=== PATIENT | male | born 1965 | race Caucasian/White ===

== ENCOUNTER → 2020-11-19 06:41 | Outpatient (CLI) | payer OTHER, SELFPAY ==
[2020-11-19 16:16] LABS: SARS-CoV-2 RNA PCR Negative
== END ==
PROVIDERS: PCP Family Medicine; Visit Provider Family Medicine Adolescent Medicine
DX: R05 Cough (principal); R50.9 Fever, unspecified; M79.10 Myalgia, unspecified site; Z20.822 Contact with and (suspected) exposure to COVID-19
CPT/HCPCS: C9803; U0003; U0005

== ENCOUNTER 2021-10-25 19:11 | Observation (INO) | payer OTHER, SELFPAY ==
[2021-10-25] VITALS (19 sets, daily range): BP systolic 145–183; BP diastolic 75–104; PULSE 66–78; RESP 13–26; TEMP 36.5–36.9; O2SAT 93–98; BMI 29.8
--- NOTE | ~2021-10-25 | CT_ITS ---
EXAMINATION: CT brain wo con INDICATION: Right arm weakness COMPARISON: 03/11/2010 TECHNIQUE: Standard unenhanced head CT. The dose-length product (DLP) was 605.33 mGy-cm. The mA was a djusted according to patient size. Iterative reconstruction technique was employed. FINDINGS: There is no intracranial hemorrhage, acute infarction, or abnormal mass lesion. The ventric les are normal. There is no abnormal mass effect or midline shift. The mcdaniel-white matter differentiat ion is normal. The basal cisterns are patent. The orbits are normal. The paranasal sinuses, mastoids and calvarium are normal. IMPRESSION: 1. No acute intracranial abnormality. As per stroke protocol, I called these results to the Emergency Department, and discussed with Dr. Marito duffy MD at 10/25/2021 19:39 CDT. Reviewed, dictated and finalized at location F. IMPRESSION: 1. No acute intracranial abnormality. As per stroke protocol, I called these results to the Emergency Department, and discussed with Dr. Giorgio MD at 10/25/2021 19:39 CDT.
--- NOTE | ~2021-10-25 | XR_ITS ---
EXAMINATION: XR chest 2V DATE: 10/25/2021 20:22 INDICATION: Right-sided weakness TECHNIQUE: AP and lateral views of the chest are obtained. COMPARISON: 08/26/2015 FINDINGS: The lungs are free of acute opacities. There is no pleural effusion or pneumothorax. The ca rdiomediastinal silhouette is normal. Healed bilateral rib fractures are noted. A healed right eighth rib fracture has the appearance of a lung nodule. IMPRESSION: 1. No acute cardiopulmonary abnormality. Reviewed, dictated and finalized at location F.
--- NOTE | ~2021-10-25 | CT_ITS ---
EXAMINATION: CTA brain carotid DATE: 10/25/2021 20:04 INDICATION: Right-sided weakness TECHNIQUE: Computed tomographic angiography (CTA) of the head was performed without and with 100 mL O mnipaque-350 intravenous contrast. CTA of the neck was performed with intravenous contrast. The dose- length product was 1272.75 mGy-cm. Maximum intensity projection and volume rendered 3D-reconstruction s were created by the technologist on a separate workstation. Automated exposure control and iterativ e reconstruction technique were employed. COMPARISON: None. FINDINGS: HEAD CTA: There is no intracranial hemorrhage, acute infarction, or abnormal mass lesion. The ventric les are normal. There is no abnormal mass effect or midline shift. The mcdaniel-white matter differentiat ion is normal. The basal cisterns are patent. The orbits are normal. The paranasal sinuses, mastoids and calvarium are normal. There is no significant stenosis of the basilar artery or posterior cerebral arteries. There is no si gnificant stenosis of the intracranial internal carotid arteries or the anterior or middle cerebral a rteries. The anterior communicating artery is normal. The posterior communicating arteries are patent . The right posterior to indicating artery is diminutive. There is no aneurysm. NECK CTA: The thyroid gland is unremarkable. The submandibular and parotid glands are symmetric. Ther e is no lymphadenopathy. There are no masses identified. The airway is unremarkable. There are no oss eous abnormalities. The superior mediastinum is unremarkable. There is 65% stenosis of the proximal right internal carotid artery relative to normal distal artery lumen diameter (NASCET criteria). There is 29% stenosis of the proximal left internal carotid artery relative to normal distal artery lumen diameter. IMPRESSION: 1. No acute intracranial abnormality. Normal head CTA. 2. 65% stenosis of the proximal right internal carotid artery relative to normal distal artery lumen diameter (NASCET criteria). 3. 29% stenosis of the proximal left internal carotid artery relative to normal distal artery lumen d iameter. Reviewed, dictated and finalized at location F. IMPRESSION: 1. No acute intracranial abnormality. Normal head CTA. 2. 65% stenosis of the proximal right internal carotid artery relative to dionte l distal artery lumen diameter (NASCET criteria). 3. 29% stenosis of the proximal left internal carotid artery relative to normal distal artery lumen diameter.
--- NOTE | ~2021-10-25 | MR_ITS ---
EXAMINATION: MR brain/brain stem wo/w con DATE: 10/26/2021 09:05 INDICATION: Left hemiparesis. TECHNIQUE: Magnetic resonance imaging (MRI) of the brain and brainstem was performed without and with 18 mL MultiHance intravenous contrast. COMPARISON: Head CT 10/25/2021 FINDINGS: There are scattered areas of nonspecific increased T2-weighted signal intensity in the cere bral white matter, which is within normal limits for the patient's age. There is no intracranial hemo rrhage, acute infarction, or abnormal intracranial mass lesion. The ventricles are normal in size. Th e paranasal sinuses are clear. The mastoid air cells are normal. The orbits are normal. IMPRESSION: 1. Normal aging brain. Reviewed, dictated and finalized at location A. IMPRESSION: 1. Normal aging brain.
--- NOTE | 2021-10-25 19:36 | ECG_ITS ---
Measurements Intervals [place] Rate: 70 P: 27 [place]: 166 QRS: 37 QRSD: 106 T: 20 QT: 409 QTc: 443 Interpretive Statements SINUS RHYTHM NORMAL ECG NO PREVIOUS ECG AVAILABLE FOR COMPARISON Electronically Signed On 10-26-2021 16:14:18 CDT by Juan Manuel Palomo M.D.
[2021-10-25 19:47] LABS: Glucose Point of Care 98 mg/dl (65-105)
--- NOTE | 2021-10-25 19:52 | PC.NURSE ---
Patient in CT at this time.
[2021-10-25 19:53] LABS: Basophils Absolute Auto 0.1 K/mm3 (0.0-0.1); Basophils Percent Auto 1.3 % (0.2-1.2); Eosinophils Absolute Auto 0.1 K/mm3 (0-0.3); Eosinophils Percent Auto 0.8 % (0-4.4); Hematocrit 43.4 % (42.0-52.0); Hemoglobin 14.8 g/dL (14.0-18.0); Immature Granulocyte Absolute 0.07 K/mm3 (0.00-0.031); Immature Granulocyte Percent A 0.8 % (0-0.5); Immature Platelet Fraction Pct 4.4 % (0.9-11.2); Lymphocytes Absolute Auto 2.26 K/mm3 (0.9-3.2); Lymphocytes Percent Auto 24.2 % (18.3-44.2); Mean Corpuscular HGB Conc 34.1 g/dl (32-36); Mean Corpuscular Hemoglobin 35.2 pg (26-34); Mean Corpuscular Volume 103.3 fl (80-100); Mean Platelet Volume 9.8 fl (7.4-10.4); Monocytes Percent Auto 11.1 % (2.6-8.5); Neutrophils Absolute Auto 5.8 K/mm3 (1.3-6.7); Neutrophils Percent Auto 61.8 % (45.5-73.1); Platelet Count Result 145 k/mm3 (150-375); Red Cell Distribution Width 13.1 % (11.5-14.5); White Blood Count 9.3 K/mm3 (4.5-10.0)
[2021-10-25 19:54] LABS: Add Urine Microscopic? NO; Appearance Urine Clear (Clear); Bilirubin Urine Negative (Negative); Blood Urine Negative (Negative); Color Urine Yellow (Yellow); Glucose Urine UA Negative (Negative); Ketones Urine Negative (Negative); Leukocyte Esterase Ur Negative LEU/UL (Negative); Nitrate Urine Negative (Negative); Protein Urine Negative (Negative); Urobilinogen Urine Negative mg/dL (<2.0)
[2021-10-25 19:57] LABS: Specific Grav Ur 1.004 (1.001-1.035)
[2021-10-25 20:01] LABS: Alanine Aminotransferase 39 U/L (4-50); Albumin Level 4.6 g/dL (3.5-5.1); Alkaline Phosphatase 109 U/L (38-126); Anion Gap 8 mmol/L (8-16); Aspartate Amino Transferase 77 U/L (17-59); Bilirubin,Total 1.2 mg/dL (0.2-1.3); Blood Urea Nitrogen 6 mg/dL (9-20); Calcium 8.8 mg/dL (8.4-10.2); Carbon Dioxide 24 mmol/L (22-30); Chloride 101 mmol/L (98-107); Estimated CRCL calculation 150 ml/min; Estimated Glomerular Filt Rate > 60; Glucose 90 mg/dL (65-110); Sodium 133 mmol/L (137-145)
[2021-10-25 20:12] LABS: Troponin I < 0.012 ng/mL (0.000-0.034)
[2021-10-25 20:16] LABS: Amphetamine Screen Urine Negative (Negative); Barbiturate Screen Urine Negative (Negative); Benzodiazepines Screen Urine Negative (Negative); Cannabinoid Screen Urine Positive (Negative); Cocaine Screen Urine Negative (Negative); Methadone Screen Urine Negative (Negative); Opiate Screen Urine Positive (Negative); Phencyclidine Screen Urine Negative (Negative)
--- NOTE | 2021-10-25 20:23 | ED.NEUROSD ---
HPI - Neuro Symptoms/Deficit General Chief Complaint: Neuro Symptoms/Deficit Stated Complaint: left side weaknes, slurred speech since 0145 Time Seen by Provider: 10/25/21 19:27 History of Present Illness HPI Narrative: Patient is a 56-year-old male who presents ER with strokelike symptoms. Patient reports that around 1:30 in the afternoon he started having slurred speech. Within an hour he developed left-sided weakness in the arm and leg. Was having difficulty with walking. He began falling later in the evening due to this weakness and inability to lift his leg. No dizziness or numbness. No difficulty with word finding. No history of CVA. No history of arrhythmia. Related Data Home Medications Medication Instructions Recorded Confirmed escitalopram oxalate 20 mg PO DAILY 10/25/21 10/26/21 Allergies Allergy/AdvReac Type Severity Reaction Status Date / Time No Known Allergies Allergy Mild Verified 10/25/21 19:31 Review of Systems Review of Systems: All systems reviewed & are unremarkable except as noted in HPI and below Constitutional: Constitutional: Denies chills, Denies fever(s) and Denies weakness Eyes: Eyes: Denies change in vision ENT: Denies nasal congestion and Denies sore throat Cardiovascular: Cardiovascular: Denies chest pain and Denies radiating jaw, neck or arm pain Respiratory: Respiratory: Denies cough, Denies dyspnea and Denies wheezing Gastrointestinal: Gastrointestinal: Denies abdominal pain, Denies nausea and Denies vomiting Musculoskeletal: Musculoskeletal: Denies arthralgias and Denies joint swelling Neurologic: Denies headache(s), Reports focal weakness and Denies numbness Comments: Slurred speech, ataxia PMFSH Past Medical History Medical History (Updated 10/26/21 @ 07:20 by Dallas Alvares MD) Hypertension Surgical History Surgical History (Updated 10/25/21 @ 20:25 by Dallas Alvares MD) No pertinent past surgical history Family History Family History (Updated 10/25/21 @ 23:02 by Eric Hyde MD) Father Heart disease Hypertension Father Hypertension Social History Social History (Updated 10/25/21 @ 23:03 by Eric Hyde MD) Smoking status: Never smoker Additional smoking assessment comments: smokes weed Alcohol intake: current Drinks per week: 70 Alcohol use details: 10-12 Beers daily Substance use: current Substance use type: marijuana Spiritual care concerns: No Exam Narrative: GENERAL: Well-appearing, well-nourished, and in no acute distress. HEAD: Normocephalic, atraumatic. EYES: PERRL and EOMI. ENT: Mucous membranes moist. CHEST: Clear to auscultation. No respiratory distress. HEART: Regular rate and rhythm. Normal peripheral pulses. ABDOMEN: Soft, nontender, nondistended. EXTREMITIES: Normal range of motion. No edema. SKIN: Warm, dry, no rash. NEURO: Left upper extremity drift, very mild drift in left lower extremity. Difficulty with finger-nose testing in the left upper and lower extremity that is mild. No facial droop. Cranial nerves intact. No expressive aphasia. Mild dysarthria is more noticeable to patient and examiner. Alert and oriented x3. PSYCH: Normal mood and affect. Course Course Emergency Course: Admit to hospitalist service for CVA. Vital Signs Vital signs: Vital Signs Temperature 98.4 F 10/25/21 19:23 Pulse Rate 69 10/25/21 19:23 Respiratory Rate 19 10/25/21 19:23 Blood Pressure 173/97 H 10/25/21 19:23 Pulse Oximetry 97 10/25/21 19:23 Temperature 98.3 F 10/26/21 04:00 Pulse Rate 70 10/26/21 04:00 Respiratory Rate 18 10/26/21 04:00 Blood Pressure 158/89 H 10/26/21 04:00 Pulse Oximetry 97 10/26/21 04:00 MDM - Neuro Symptoms/Deficit Lab Data Result diagrams: 10/25/21 19:41 10/25/21 19:41 Labs: Lab Results 10/25/21 10/25/21 10/25/21 Range/Units 19:38 19:41 19:41 WBC 9.3 (4.5-10.0) K/mm3 RBC 4.20
[2021-10-25 20:25] LABS: INR 1.2; Prothrombin Time 14.8 Seconds (11.1-14.7)
[2021-10-25 20:26] LABS: Partial Thromboplastin Time 30.3 SECONDS (22.3-36.8)
[2021-10-25] MEDS: ASPIRIN 81 MG CHEWABLE TABLET 324 MG PO (20:41)
--- NOTE | 2021-10-25 21:13 | PM.IMHP ---
H&P: HPI History of Present Illness Date/Time: 10/25/21 21:13 Chief Complaint: Left-sided weakness. Narrative: This is a 56-year-old male with past medical history significant for hypertension, alcohol dependence, major depression, sciatica. Patient presents to the emergency room brought in by brother by private car after patient had an episode of left-sided weakness multiple falls as he was unable to control the left side of his body due to the weakness was dragging his left foot as well, patient had had 4 beers around that time these episode happen around 2:00 a.m. in the afternoon patient had been all morning working in his garden and last night when he went to bed he was his usual had no issues during the week. Patient denied any loss of consciousness, no changes in his vision, no chest pain, no headaches, no shortness of breath, no cough, no fevers, no rigors, no chills, no nausea, no vomiting, no incontinence of sphincters. Patient finally decided to come to the emergency room and conduct his brother who in turn brought him. Preliminary workup showed a systolic blood pressure to be is in the 180s and diastolic in the 90s. A CT angiogram of head and neck did not show any acute clot a but some carotid stenosis, CT of the head did not show acute hemorrhage. At the time of my visit patient has resolution of symptoms. Patient is been admitted for further evaluation management and treatment Review of Systems Review of Systems: Left-sided weakness, falls. Constitutional: Constitutional: Denies chills, Denies daytime sleepiness, Denies excessive sweating, Denies fatigue, Denies fever(s), Denies lethargy, Denies malaise, Denies night sweats, Denies poor appetite and Denies weakness Eyes: Eyes: Denies change in vision ENT: Denies dysphagia, Denies vertigo, Denies dizziness, Denies nasal congestion, Denies nasal discharge, Denies nasal obstruction and Denies odynophagia Cardiovascular: Cardiovascular: Denies chest pain at rest, Denies chest pain with activity, Denies claudication, Denies leg edema, Denies lightheadedness, Denies radiating jaw, neck or arm pain, Denies palpitations, Denies dyspnea on exertion, Denies orthopnea and Denies paroxysmal nocturnal dyspnea Respiratory: Respiratory: Denies chest congestion, Denies cough, Denies excessive phlegm production, Denies dyspnea, Denies dyspnea on exertion and Denies wheezing Gastrointestinal: Gastrointestinal: Denies abdominal pain, Denies dyspepsia, Denies heartburn, Denies diarrhea, Denies nausea and Denies vomiting Genitourinary: Genitourinary: Denies dysuria Musculoskeletal: Musculoskeletal: Denies myalgias, Denies arthralgias and Denies joint swelling Integumentary/Breasts: Skin/Breast: Denies rash Neurologic: Reports as per HPI, Denies Abnormal speech present, Reports abnormal gait, Denies confusion, Denies vertigo, Denies dizziness, Denies syncope, Reports focal weakness, Denies Sensory deficit (Neuro), Denies tingling, Denies tremor(s), Reports disequilibrium and Reports weakness Psychiatric: Psychiatric: Reports no additional psychiatric complaints and Reports as per HPI Endocrine: Endocrine: Denies cold intolerance, Denies heat intolerance, Denies polyphagia, Denies polydipsia and Denies palpitations Hematologic/Lymphatic: Hematologic/Lymphatic: Reports no additional hematologic/lymphatic complaints and Reports as per HPI Allergic/Immunologic: Allergic/Immunologic: Reports no additional allergic/immunologic complaints and Reports as per HPI [facility] Past Medical History Medical History (Updated 10/25/21 @ 23:34 by Eric Hyde MD) Hypertension Surgical History Surgical History (Updated 10/25/21 @ 20:25 by Dallas Alvares MD) No pertinent past surgical history Family History Family History (Updated 10/25/21 @ 23:02 by Eric Hyde MD) Father Heart disease Hypertension Father Hypertension Social History Social History (Updated 10/25/21 @ 23:03 b
--- NOTE | 2021-10-25 23:41 | ADMGEN ---
This patient, Rickey Rizzo, was admitted to 3 [facility] Surg Room 329-01. Patient/family oriented to hospital policies and general routines including ID bracelet, bed and alarms, visiting hours, pain management, procedures, bathroom and other care routines, personal items, smoking policy, room service/diet, and visiting hours. Information on how to activate the Rapid Response Team has been discussed. Patient/Family are encouraged to report perceived risks to care and to ask questions if they do not understand what they are told or what they should do.
[2021-10-26] VITALS (11 sets, daily range): BP systolic 158–169; BP diastolic 76–89; PULSE 56–78; RESP 18–20; TEMP 36.3–36.8; O2SAT 96–98
--- NOTE | 2021-10-26 | ECHO_ITS ---
Patient Info Name: Rickey Rizzo Age: 56 years : 1965 Gender: Male Ht: 68 in Wt: 196 lbs BSA: 2.09 m2 HR: 78 bpm BP: 158 / 89 mmHg Heart Rhythm: Sinus Rhythm Technical Quality: Good Exam Date: 10/26/2021 11:25 AM Exam Location: [facility] Pulmonary Exam Room: [facility] Patient Status: Outpatient Admit Date: 10/25/2021 Staff Ordering Physician: Eric Hyde MD Supervisor [employer]: Jeimy Nunez RDCS Attending Provider: Radha Paris PA-C Referring Physician: Barrett DHILLON; Exam Type: CA echo doppler color flow Study Info Indications - TIA Complete two-dimensional, color flow and Doppler transthoracic echocardiogram is performed. Summary 1. Complete two-dimensional, color flow and Doppler transthoracic echocardiogram is performed. 2. Unremarkable 2D Doppler echocardiogram. Left Ventricle Left ventricular chamber dimension is normal. Left ventricular systolic function is normal, estimated at 65-70%. The left ventricular diastolic function is normal. Right Ventricle Right ventricular chamber dimension is normal. Left Atria Left atrial chamber dimension is normal. Right Atria Right atrial chamber dimension is normal. Aortic Valve The aortic valve is normal. Pulmonic Valve The pulmonic valve is normal. Mitral Valve The mitral valve has normal leaflets. Tricuspid Valve The tricuspid valve leaflets are normal. Pericardium/Pleural The pericardium appears normal. Aorta The aortic root size at the sinus of Valsalva is normal. Left Ventricular Outflow Tract Name Value Normal LVOT 2D LVOT Diameter 2.1 cm LVOT Doppler LVOT Peak Gradient 5 mmHg LVOT Mean Gradient 3 mmHg LVOT VTI 23 cm LVOT VTI/AV VTI Ratio 0.9 LVOT Stroke Volume 79 ml LVOT CO 16.0 l/min LVOT CI 7.6 l/min/m2 Pulmonic Valve Name Value Normal PV Doppler PV Peak Gradient 4 mmHg PV Regurgitation Doppler NC Peak End Diastolic Velocity 71 cm/s Mitral Valve Name Value Normal MV Doppler MV Decel [place] 276 cm/s2 MV PHT 76 ms MV Area (PHT) 2.9 cm2 4.0-5.0 MV Diastolic Function MV E Peak Velocity
[2021-10-26 08:22] LABS: Basophils Absolute Auto 0.1 K/mm3 (0.0-0.1); Basophils Percent Auto 1.4 % (0.2-1.2); Eosinophils Absolute Auto 0.1 K/mm3 (0-0.3); Eosinophils Percent Auto 0.9 % (0-4.4); Hematocrit 43.4 % (42.0-52.0); Hemoglobin 14.7 g/dL (14.0-18.0); Immature Granulocyte Absolute 0.05 K/mm3 (0.00-0.031); Immature Granulocyte Percent A 0.6 % (0-0.5); Lymphocytes Absolute Auto 1.65 K/mm3 (0.9-3.2); Lymphocytes Percent Auto 21.4 % (18.3-44.2); Mean Corpuscular HGB Conc 33.9 g/dl (32-36); Mean Corpuscular Volume 103.3 fl (80-100); Mean Platelet Volume 9.8 fl (7.4-10.4); Monocytes Absolute Auto 0.9 K/mm3 (0.1-0.6); Monocytes Percent Auto 11.3 % (2.6-8.5); Neutrophils Percent Auto 64.4 % (45.5-73.1); Platelet Count Result 109 k/mm3 (150-375); Red Cell Distribution Width 13.2 % (11.5-14.5); White Blood Count 7.7 K/mm3 (4.5-10.0)
[2021-10-26 08:41] LABS: Alanine Aminotransferase 38 U/L (4-50); Albumin Level 4.2 g/dL (3.5-5.1); Alkaline Phosphatase 109 U/L (38-126); Anion Gap 5 mmol/L (8-16); Aspartate Amino Transferase 79 U/L (17-59); Bilirubin,Total 1.8 mg/dL (0.2-1.3); Blood Urea Nitrogen 7 mg/dL (9-20); Calcium 8.5 mg/dL (8.4-10.2); Carbon Dioxide 25 mmol/L (22-30); Chloride 104 mmol/L (98-107); Estimated CRCL calculation 149 ml/min; Estimated Glomerular Filt Rate > 60; Glucose 108 mg/dL (65-110); Potassium 4.1 mmol/L (3.4-5.0); Sodium 134 mmol/L (137-145)
[2021-10-26] MEDS: HYDROcodone/acetaminophen (*CRX) 5-325 MG TABLET 1 TAB PO ×2 (09:22→18:19)
[2021-10-26] MEDS: atenoloL 50 MG TABLET PO (09:22)
[2021-10-26] MEDS: lisinopriL 10 MG TABLET PO (09:23)
[2021-10-26] MEDS: ESCITALOPRAM OXALATE 10 MG TABLET 20 MG BY MOUTH (09:23)
[2021-10-26] MEDS: ATORVASTATIN 40 MG TABLET 80 MG PO (09:23)
[2021-10-26] MEDS: CLOPIDOGREL BISULFATE 75 MG TABLET PO (09:24)
--- NOTE | 2021-10-26 10:15 | WPDNEURCNPN ---
Assessment and Plan Additional Plan TIA involving the right anterior circulation in addition to neuropathy in the lower extremity and documented MCV abnormal raising the possibility of B12 and folate deficiency Consult date: 10/26/21 HPI: Rickey Rizzo is a 56 year old male Admitted to the hospital through the emergency room with the complaints of left-sided weakness along with slurred speech as per the information available around 130 p.m. he started having slurred speech within an hour developed left-sided weakness involving the upper and lower extremity and also had difficulties in walking subsequent started falling he gave no history of nausea vomiting dizziness, has been taking the subtle a prime 20 mg daily and he is not allergic to any medication, he does have ongoing history of being no never smoker but drinking 70 per week at least 10 to 12 beers daily, initial vital signs were stable except blood pressure 173/97 evaluation revealed normal CBC BMP with low sodium of 133 AST 77 and urine positive for opiates CTA of the head and neck negative except 65% stenosis of proximal right internal carotid artery relatively normal distal artery lumen and 29% stenosis of proximal left internal carotid artery MCV 103.3, MRI of the brain normal and negative CT of the head Review of Systems Review of Systems: All systems reviewed & are unremarkable except as noted in HPI and below PMFSH Past Medical History Medical History Hypertension Surgical History Surgical History No pertinent past surgical history Family History Family History Father Heart disease Hypertension Father Hypertension Social History Social History Smoking status: Never smoker Additional smoking assessment comments: smokes weed Alcohol intake: current Drinks per week: 70 Alcohol use details: 10-12 Beers daily Substance use: current Substance use type: marijuana Spiritual care concerns: No Meds Home Medications and Allergies Home Medications Medication Instructions Recorded Confirmed Type atenolol 50 mg tablet 50 mg PO DAILY #30 tablet 08/25/21 10/26/21 Rx lisinopril 10 mg tablet 10 mg PO DAILY #30 tablet 08/26/21 10/26/21 Rx hydrocodone 5 mg-acetaminophen 325 1 tablet PO QID PRN #30 tablet 10/13/21 10/26/21 Rx mg tablet escitalopram oxalate 20 mg PO DAILY 10/25/21 10/26/21 History Allergies Allergy/AdvReac Type Severity Reaction Status Date / Time No Known Allergies Allergy Mild Verified 10/25/21 19:31 Vital Signs Vital Signs - 24 hr 10/25/21 19:23 10/25/21 19:45 10/25/21 19:46 Temperature 36.9 C Pulse Rate 69 69 75 Respiratory Rate 19 26 H 20 Blood Pressure 173/97 H 168/86 H Pulse Oximetry 97 95 95 10/25/21 20:03 10/25/21 20:05 10/25/21 20:22 Temperature Pulse Rate 68 69 72 Respiratory Rate 16 22 H 13 Blood Pressure 163/86 H Pulse Oximetry 97 95 96 10/25/21 20:41 10/25/21 21:06 10/25/21 21:15 Temperature Pulse Rate 78 73 71 Respiratory Rate 17 15 20 Blood Pressure Pulse Oximetry 94 95 94 10/25/21 21:16 10/25/21 21:33 10/25/21 21:55 Temperature Pulse Rate 75 71 66 Respiratory Rate 13 14 15 Blood Pressure 163/104 H Pulse Oximetry 95 96 97 10/25/21 22:06 10/25/21 22:14 10/25/21 22:15 Temperature Pulse Rate 72 67 68 Respiratory Rate 21 H 18 22 H Blood Pressure 183/83 H Pulse Oximetry 93 95 95 10/25/21 22:30 10/25/21 22:33 10/25/21 22:46 Temperature Pulse Rate 74 77 Respiratory Rate 17 22 H Blood Pressure 167/102 H 145/93 H Pulse Oximetry 96 95 10/25/21 23:05 10/26/21 00:00 10/26/21 04:00 Temperature 36.5 C 36.8 C Pulse Rate 70 78 70 Respiratory Rate 18 18 Blood Pressure 174/75 H 158/89 H Pulse Oximetry 98 97 10/26/21 07:54 10/26/21 08
--- NOTE | 2021-10-26 13:49 | PM.IMPN ---
Progress Note: A&P Assessment and Plan (1) Transient ischemic attack: Code(s): G45.9 - Transient cerebral ischemic attack, unspecified Status: Acute Assessment and Plan: -Patient presented 6 hours after episode -Symptoms had resolved at the time of presenting to emergency room -CT did not show any acute thrombosis -MRI negative -Echocardiogram pending -Will start Lipitor and Plavix -neuro consult (2) Fall: Code(s): W19.XXXA - Unspecified fall, initial encounter Status: Acute Assessment and Plan: -No acute fractures -Likely secondary to brief episode of weakness and gait disturbance (3) Hypertension: Code(s): I10 - Essential (primary) hypertension Status: Acute Assessment and Plan: -Restart home meds -trending slightly elevated, contine monitoring, consider adjusting medications (4) Alcohol dependence: Code(s): F10.20 - Alcohol dependence, uncomplicated Status: Acute Assessment and Plan: -CIWA protocol as needed -No signs of withdrawal Subjective Date/time seen: 10/26/21 13:49 Interval history: 56 yo male w/ hx of hypertension, alcohol dependence, major depression, sciatica, admitted for TIA. Pt had L sided weakness yesterday causing him to have multiple falls. Today he tells me that all symptoms have resolved and he was able to walk to the bathroom. No weakness, dizziness, vision changes, paraesthesias. No cp/sob. Review of Systems Review of Systems: All systems reviewed & are unremarkable except as noted in HPI and below Exam Narrative: General: No acute distress, non toxic appearing Eyes: PERRL, no scleral icterus HEENT: NCAT, external ears normal, MMM Respiratory: No respiratory distress, Lungs CTA bilaterally, no wheezing Cardiovascular: RRR, no murmur Abdominal: Soft, nontender, non distended, no rebound or guarding Musculoskeletal: Moves all 4 extremities, no edema Neurological: A/Ox3, speech clear, no facial asymmetry, cranial nerves II-XII grossly intact. 5/5 strength BUE and BLE. 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 Skin: Warm, dry, no rashes Psychiatric: Normal affect, normal mood Objective Data Vital Signs Vital Signs: Vital Signs - 24 hr 10/25/21 19:23 10/25/21 19:45 10/25/21 19:46 Temperature 98.4 F Pulse Rate 69 69 75 Respiratory Rate 19 26 H 20 Blood Pressure 173/97 H 168/86 H Pulse Oximetry 97 95 95 10/25/21 20:03 10/25/21 20:05 10/25/21 20:22 Temperature Pulse Rate 68 69 72 Respiratory Rate 16 22 H 13 Blood Pressure 163/86 H Pulse Oximetry 97 95 96 10/25/21 20:41 10/25/21 21:06 10/25/21 21:15 Temperature Pulse Rate 78 73 71 Respiratory Rate 17 15 20 Blood Pressure Pulse Oximetry 94 95 94 10/25/21 21:16 10/25/21 21:33 10/25/21 21:55 Temperature Pulse Rate 75 71 66 Respiratory Rate 13 14 15 Blood Pressure 163/104 H Pulse Oximetry 95 96 97 10/25/21 22:06 10/25/21 22:14 10/25/21 22:15 Temperature Pulse Rate 72 67 68 Respiratory Rate 21 H 18 22 H Blood Pressure 183/83 H Pulse Oximetry 93 95 95 10/25/21 22:30 10/25/21 22:33 10/25/21 22:46 Temperature Pulse Rate 74 77 Respiratory Rate 17 22 H Blood Pressure 167/102 H 145/93 H Pulse Oximetry 96 95 10/25/21 23:05 10/26/21 00:00 10/26/21 04:00 Temperature 97.7 F 98.3 F Pulse Rate 70 78 70 Respiratory Rate 18 18 Blood Pressure 174/75 H 158/89 H Pulse Oximetry 98 97 10/26/21 07:54 10/26/21 08:00 10/26/21 08:46 Temperature 97.4 F L Pulse Rate 74 68 Respiratory Rate 19 19 Blood Pressure 166/76 H Pulse Oximetry 97 97 97 10/26/21 09:22 10/26/21 11:57 Temperature 97.8 F Pulse Rate 68 56 L Respiratory Rate 20 Blood Pressure 169/79 H Pulse Oximetry 97 Intake/Output Intake/Output: Intake & Output 10/23/21 10/24/21 10/25/21 10/26/21 23:59 23:59 23:59 23:59 Intake Total 240 Output Total 350 Balance -110 Meds/Results M
[2021-10-27] VITALS (8 sets, daily range): BP systolic 137–179; BP diastolic 85–92; PULSE 59–68; RESP 18–20; TEMP 36.6–36.8; O2SAT 96–99
[2021-10-27 06:00] LABS: Basophils Absolute Auto 0.1 K/mm3 (0.0-0.1); Basophils Percent Auto 1.4 % (0.2-1.2); Eosinophils Absolute Auto 0.1 K/mm3 (0-0.3); Eosinophils Percent Auto 1.2 % (0-4.4); Hematocrit 42.8 % (42.0-52.0); Hemoglobin 14.8 g/dL (14.0-18.0); Immature Granulocyte Absolute 0.03 K/mm3 (0.00-0.031); Immature Granulocyte Percent A 0.4 % (0-0.5); Immature Platelet Fraction Pct 5.3 % (0.9-11.2); Lymphocytes Absolute Auto 1.74 K/mm3 (0.9-3.2); Lymphocytes Percent Auto 21.5 % (18.3-44.2); Mean Corpuscular HGB Conc 34.6 g/dl (32-36); Mean Corpuscular Hemoglobin 35.2 pg (26-34); Mean Corpuscular Volume 101.9 fl (80-100); Mean Platelet Volume 10.7 fl (7.4-10.4); Monocytes Percent Auto 12.3 % (2.6-8.5); Neutrophils Absolute Auto 5.1 K/mm3 (1.3-6.7); Neutrophils Percent Auto 63.2 % (45.5-73.1); Platelet Count Result 104 k/mm3 (150-375); White Blood Count 8.1 K/mm3 (4.5-10.0)
[2021-10-27 06:12] LABS: Alanine Aminotransferase 36 U/L (4-50); Albumin Level 3.9 g/dL (3.5-5.1); Alkaline Phosphatase 95 U/L (38-126); Anion Gap 6 mmol/L (8-16); Aspartate Amino Transferase 73 U/L (17-59); Bilirubin,Total 1.8 mg/dL (0.2-1.3); Blood Urea Nitrogen 13 mg/dL (9-20); Calcium 8.6 mg/dL (8.4-10.2); Carbon Dioxide 27 mmol/L (22-30); Chloride 102 mmol/L (98-107); Estimated CRCL calculation 149 ml/min; Estimated Glomerular Filt Rate > 60; Glucose 106 mg/dL (65-110); Sodium 135 mmol/L (137-145)
[2021-10-27] MEDS: CLOPIDOGREL BISULFATE 75 MG TABLET PO (08:09)
[2021-10-27] MEDS: ESCITALOPRAM OXALATE 10 MG TABLET 20 MG BY MOUTH (08:09)
[2021-10-27] MEDS: atenoloL 50 MG TABLET PO (08:09)
[2021-10-27] MEDS: lisinopriL 10 MG TABLET PO (08:09)
[2021-10-27] MEDS: ATORVASTATIN 40 MG TABLET 80 MG PO (08:09)
[2021-10-27 08:25] LABS: Folic Acid 16.8 ng/mL (2.76->20)
--- NOTE | 2021-10-27 11:41 | PM.DS ---
DS: Admitting Diagnosis Discharge Date 10/27/21 Admitting Diagnosis TIA DS: Discharge Diagnosis Discharge Diagnosis (1) Transient ischemic attack: Code(s): G45.9 - Transient cerebral ischemic attack, unspecified Status: Acute Assessment and Plan: -Patient presented 6 hours after episode -Symptoms had resolved at the time of presenting to emergency room -CT did not show any acute thrombosis -MRI negative -Head/neck CTA shows 65% stenosis of the proximal right internal carotid artery relative to normal distal artery lumen diameter (NASCET criteria). There is 29% stenosis of the proximal left internal carotid artery relative to normal distal artery lumen diameter. -Echocardiogram normal -Started Lipitor and Plavix -neurology consulted. He recommends discharging home on 81 mg ASA, 75 mg plavix, and 80 mg lipitor. He also recommends patient follow up in the next 1-[address] Bryant to arrange outpatient vascular surgery consult. -pt is asymptomatic at this time. All questions and concerns were addressed to patient's satisfaction. Return precautions provided. (2) Carotid stenosis: Code(s): I65.29 - Occlusion and stenosis of unspecified carotid artery Status: Acute Assessment and Plan: -as above (3) Fall: Code(s): W19.XXXA - Unspecified fall, initial encounter Status: Acute Assessment and Plan: -No acute fractures -Likely secondary to brief episode of weakness and gait disturbance (4) Hypertension: Code(s): I10 - Essential (primary) hypertension Status: Acute Assessment and Plan: -Restarted home meds -trending slightly elevated, recommend follow up in 1 week with pcp to discuss medication management and possibly increasing the dose of his anti hypertensives (5) Alcohol dependence: Code(s): F10.20 - Alcohol dependence, uncomplicated Status: Acute Assessment and Plan: -CIWA protocol as needed -No signs of withdrawal DS: Summary Hospital Course Reason for hospitalization: 56 yo male w/ hx of hypertension, alcohol dependence, major depression, sciatica, admitted for TIA. Please see HPI for further details. Hospital Course: Please see above for details of hospital course. Status at Discharge Cognitive/behavioral status at discharge: stable Functional status at discharge: independent ambulation Overall status at discharge: patient is progressing back to baseline Time Spent with Patient Time attestation: Total time spent providing and/or coordinating discharge services: 35 Time spent: Greater than 30 minutes Exam Narrative: General: No acute distress, non toxic appearing Eyes: PERRL, no scleral icterus HEENT: NCAT, external ears normal, MMM Respiratory: No respiratory distress, Lungs CTA bilaterally, no wheezing Cardiovascular: RRR, no murmur Abdominal: Soft, nontender, non distended, no rebound or guarding Musculoskeletal: Moves all 4 extremities, no edema Neurological: A/Ox3, speech clear, no facial asymmetry, cranial nerves II-XII grossly intact. 5/5 strength BUE and BLE. Normal equal cork insulation setter strength. Skin: Warm, dry, no rashes Psychiatric: Normal affect, normal mood DS: Data Data Completed and Pending Labs on day of discharge: Labs from last 24 hours 10/27/21 10/27/21 10/27/21 05:26 05:26 05:24 WBC 8.1 RBC 4.20 L Hgb 14.8 Hct 42.8 MCV 101.9 H MCH 35.2 H MCHC 34.6 RDW 13.0 Plt Count 104 L MPV 10.7 H Immature Gran % (Auto) 0.4 Neut % (Auto) 63.2 Lymph % (Auto) 21.5 [place] % (Auto) 12.3 H Eos % (Auto) 1.2 Baso % (Auto) 1.4 H Lymph # (Auto) 1.74 [place] # (Auto) 1.0 H Eos # (Auto) 0.1 Baso # (Auto) 0.1 Abs Immat Gran (auto) 0.03 Absolute Neuts (auto) 5.1 Absolute Nucleated RBC 0.0 Nucleated RBC % 0.0 % Immature Plt Fraction 5.3 Sodium 135 L Potassium 4.0 Chloride 102
--- NOTE | 2021-10-27 12:31 | WPDNEUROPN ---
Progress Note: A&P Additional Plan discussed thoroughly will need to continue aspirin and Plavix for the diagnosis of TIA, will need a follow-up with a family physician to be referred to vascular surgeon, Subjective Date/time seen: 10/27/21 12:31 1 TIA involving the right anterior circulation 2 neuropathy 3 65% stenosis of the proximal right internal carotid artery relative to normal distal artery lumen diameter 4 negative MRI of the brain Objective Data Vital Signs Vital Signs: Vital Signs - 24 hr 10/26/21 16:00 10/26/21 19:57 10/26/21 20:00 Temperature 36.4 C 36.8 C Pulse Rate 58 L 63 59 L Respiratory Rate 20 18 Blood Pressure 164/83 H 160/82 H Pulse Oximetry 98 96 10/26/21 23:45 10/27/21 00:00 10/27/21 03:48 Temperature 36.7 C 36.6 C Pulse Rate 56 L 63 59 L Respiratory Rate 18 18 Blood Pressure 166/79 H 167/92 H Pulse Oximetry 98 96 10/27/21 04:00 10/27/21 07:49 10/27/21 08:00 Temperature 36.6 C Pulse Rate 65 59 L 65 Respiratory Rate 20 Blood Pressure 179/85 H Pulse Oximetry 99 10/27/21 08:09 10/27/21 11:51 10/27/21 12:00 Temperature 36.8 C Pulse Rate 68 63 63 Respiratory Rate 19 Blood Pressure 137/85 Pulse Oximetry 98 Intake/Output Intake/Output: Intake & Output 10/24/21 10/25/21 10/26/21 10/27/21 23:59 23:59 23:59 23:59 Intake Total 1045 370 Output Total 350 Balance 695 370 Meds/Results Medications: Active Medications Generic Name Dose Route Start Last Admin Trade Name Freq PRN Reason Stop Dose Admin Acetaminophen 650 mg 10/25/21 21:25 Acetaminophen 325 Mg Tablet PO Q4H PRN Mild Pain (1-3) or Fever Hydrocodone Bitart/Acetaminophen 1 tab 10/25/21 21:25 10/26/21 18:19 Hydrocodone/Acetaminophen (*Crx) 5-325 Mg Tablet PO 1 tab Q4H PRN Administration Pain Rated 4-6 Atenolol 50 mg 10/26/21 09:00 10/27/21 08:09 Atenolol 50 Mg Tablet PO 50 mg DAILY NAVYA Administration Atorvastatin Calcium 80 mg 10/26/21 09:00 10/27/21 08:09 Atorvastatin 40 Mg Tablet PO 80 mg DAILY NAVYA Administration Clopidogrel Bisulfate 75 mg 10/26/21 09:00 10/27/21 08:09 Clopidogrel Bisulfate 75 Mg Tablet PO 75 mg QAM NAVYA Administration Escitalopram Oxalate 20 mg 10/26/21 09:00 10/27/21 08:09 Escitalopram Oxalate 10 Mg Tablet BY MOUTH 20 mg DAILY NAVYA Administration Lisinopril 10 mg 10/26/21 09:00 10/27/21 08:09 Lisinopril 10 Mg Tablet PO 10 mg DAILY NAVYA Administration Morphine Sulfate 4 mg 10/25/21 21:25 Morphine Sulfate (*Crx) 4 Mg/Ml Inj IV PUSH Q2H PRN Pain Rated 7-10 Ondansetron HCl 4 mg 10/25/21 21:25 Ondansetron Inj 4 Mg/2 Ml Vial IV PUSH Q4H PRN Nausea Perflutren Lipid Microsphere 0 ml 10/26/21 00:57 Perflutren Lipid Microspheres 1.5 Ml Vial Diluted To 10 Ml Total Volume IV PUSH ONCE PRN adequate visualization Protocol Radiology Results: ITS Impressions Head CT 10/25/21 19:36 IMPRESSION: 1. No acute intracranial abnormality. As per stroke protocol, I called these results to the Emergency Department, and discussed with Dr. Giorgio MD at 10/25/2021 19:39 CDT. Head/Neck CTA 10/25/21 20:10 IMPRESSION: 1. No acute intracranial abnormality. Normal head CTA. 2. 65% stenosis of the proximal right internal carotid artery relative to normal distal artery lumen diameter (NASCET criteria). 3. 29% stenosis of the proximal left internal carotid artery relative to normal distal artery lumen diameter. Chest X-Ray 10/25/21 20:41 IMPRESSION: 1. No acute cardiopulmonary abnormality. Brain MRI 10/26/21 09:08 IMPRESSION: 1. Normal aging brain. Labs Labs: Laboratory Results - last 24 hr 10/27/21 10/27/21 10/27/21 05:24 05:26 05:26 WBC 8.1 RBC 4.20 L Hgb 14.8 Hct 42.8 MCV 101.9 H MCH 35.2 H MCHC 34.6 RDW 13.0 Plt Count 104 L MPV 10.7 H Immature Gran % (Auto)
== END 2021-10-27 12:30 | disposition home or self-care (01) ==
LOC: ANHED 19:41 → ANH3MEDSUR 22:10
PROVIDERS: Physician Assistant; Admitting Provider Internal Medicine; Emergency Provider Emergency Medicine; PCP Family Medicine Adolescent Medicine; Visit Provider Family Medicine
DX: G45.9 Transient cerebral ischemic attack, unspecified (principal); I10 Essential (primary) hypertension; F10.20 Alcohol dependence, uncomplicated; F12.90 Cannabis use, unspecified, uncomplicated; W19.XXXA Unspecified fall, initial encounter; F32.9 Major depressive disorder, single episode, unspecified; M54.30 Sciatica, unspecified side
CPT/HCPCS: 36415; 70450; 70496; 70498; 70553; 71046; 80053; 80307; 81003; 82607; 82746; 82948; 84484; 85025; 85055; 85610; 85730; 93005; 93306; 99285; A9270; A9577; G0378; Q9967

== ENCOUNTER 2024-09-24 13:05 | Outpatient (CLI) | payer OTHER, SELFPAY ==
--- NOTE | ~2024-09-24 | US_ITS ---
EXAMINATION: US carotid duplex BI DATE: 09/24/2024 13:52 INDICATION: Transient ischemic attack. Bilateral carotid stenosis. TECHNIQUE: Grayscale, color Doppler, and pulsed Doppler images of the cervical carotid arteries were obtained. The degree of vessel stenosis is placed in one of the following categories: normal, <50%, 5 0-69%, >=70% but less than near-occlusion, near-occlusion, or total occlusion. Note that percent sten osis relative to normal distal artery lumen diameter is indirectly measured from velocity measurement s as described by Olegario, et al. Radiology 2003; 229:340-346. COMPARISON: CTA 10/25/21 FINDINGS: RIGHT: The right common carotid artery (CCA) peak systolic velocity (PSV) is 68 cm/s. The right internal car otid artery (ICA) PSV is 86 cm/s. The right ICA end-diastolic velocity (EDV) is 18 cm/s. The right IC A/CCA PSV ratio is 1.3. Grayscale and color Doppler images yield an estimate of <50% diameter reducti on from plaque in the ICA. There is antegrade flow in the right vertebral artery. LEFT: The left CCA PSV is 108 cm/s. The left ICA PSV is 102 cm/s. The left ICA EDV is 34 cm/s. The left ICA /CCA PSV ratio is 0.9. Grayscale and color Doppler images yield an estimate of <50% diameter reductio n from plaque in the ICA. There is antegrade flow in the left vertebral artery. IMPRESSION: 1. <50% stenosis in the right internal carotid artery. 2. <50% stenosis in the left internal carotid artery. Reviewed, dictated and finalized at location A.
--- OUTSIDE RECORDS SUMMARY | 2024-09-24 14:55 | XMS_ITS | Clinical Summary ---
Author Organization [facility] [address] [address] Address [address] [place] [address] Care Team Providers Care Laboratory Equipment Cleaner Name Role Phone Lawrence Blue MD Primary Care Prov ider Dasha Khalil NP Unavailable [phone] Allergies No known active allergies Medications rosuvastatin (CRESTOR) 40 mg tablet Take 1 tablet (40 mg total) by mouth daily 01/11/2022 Active clopidogreL (PLAVIX) 75 mg tablet Take 1 tablet (75 mg total) by mouth every morning 12/03/2021 Active lisinopriL (PRINIVIL,ZESTR [place]) 10 mg tablet Take 1 tablet (10 mg total) by mouth daily 12/03/2021 Active escitalopram (LEXAPRO) 20 mg tablet Take 1 tablet (20 mg total) by mouth daily 01/11/2022 Active HYDROcodone-evon taminophen (NORCO) 5-325 mg per tablet Take 1 tablet by mouth every 4 (four) hours as needed Usually in the evening 01/12/2022 Active atenoloL (TENORMIN) 50 mg tablet Take 1 tablet (50 mg total) by mouth daily 01/01/2022 Active cholecalciferol (VITAMIN D-3) 5,000 unit capsule Take 1 capsule (5,000 Units total) by mouth daily Active Active Problems Problem Noted Date Diagnosed Date Claudication 10/11/2022 Overview (10/11/2022): Added automatically from request for surgery [id number] Assessment & Plan (10/12/2022 7:10 AM CDT): Bilateral lower extremity life-limiting claudication left greater than right. Risks benefits alternatives to left lower extremity angiography with possible intervention discussed, risks including bleeding, infection, perforation, contrast induced nephropathy, dissection, thrombosis, distal embolization, and need for further surgery. He wished to proceed. We will get a CTA prior to his angiogram to evaluate for inflow disease due to monophasic waveforms. Primary hypertension 01/13/2022 Assessment & Plan (10/12/2022 7:10 AM CDT): Stable continue atenolol 50 mg. Assessment & Plan (02/04/2022 7:33 AM CDT): Lisinopril Assessment & Plan (01/13/2022 3:10 PM CDT): Atenolol Stenosis of right carotid artery 01/13/2022 Assessment & Plan (02/04/2022 7:33 AM CDT): After review of his CTA from [facility] as well as the duplex here today he has less than 50% stenosis of the right internal carotid artery. I have recommended continue medical management with risk factor modification with ASA, Plavix, statin and good blood pressure control. He will follow-up in 6 months with repeat duplex. Assessment & Plan (01/13/2022 3:10 PM CDT): Symptomatic right ICA stenosis, continue risk factor modification with ASA, Plavix and statin therapy as well as good blood pressure control. I discussed management options for carotid artery stenosis including surgical management or stenting with symptomatic disease greater than 50% or asymptomatic disease greater than 80%. I will obtain his CT a head and neck from [facility] and evaluate this myself, I have also ordered a carotid duplex for further evaluation. Follow-up in 1-2 weeks. Mixed hyperlipidemia 01/13/2022 Assessment & Plan (10/12/2022 7:10 AM CDT): Stable continue Crestor 40 mg. Assessment & Plan (02/04/2022 7:33 AM CDT): Crestor Assessment & Plan (01/13/2022 3:10 PM CDT): Lipitor Surgical History Surgery Date Site/Laterality Comments HERNIA REPAIR as a baby Medical History Medical History Date Comments HTN (hypertension) TIA (transient ischemic attack) Leg pain can't walk a blo ck without pain Depression SOB (shortness of breath) due to pain in legs Chronic pain disorder legs Hyperlipidemia Family History Medical History Relation Name Comments Heart disease Father Hypertension Father Relation Name Status Comments Father Social History Tobacco Use Types Packs/Day Years Used Date Smoking Tobacco: Never Smokeless Tobacco: Never AUDIT-C Answer Date Recorded Q1: How often do you have a drink containing alcohol? 4 or more times a week 10/19/2022 Q2: How many drinks containi ng alcohol do you have on a typical day when you are drinking? 7 to 9 Q3: How often do you have si x or more drinks on one occasion? Daily or almost daily 10/19/2022 Personal Safety Answer Date Recorded Getting School Help Needed Not on file 10/20 Sex and Gender Information Value Date Recorded Sex Assigned at Not on file Legal Sex Male 9:38 AM CDT Gender Identity Not on file Sexual Orientation Not on file Obstetrics History Last Filed Vital Signs Vital Sign Reading Time Taken Comments Blood Pressure 124/84 10/19/2022 4:00 PM CDT Pulse 63 10/19/2022 4:00 PM CDT Temperature 36.8 C (98.3 F) 10/19/2022 1:30 PM CDT Respiratory Rate 18 10/19/2022 4:00 PM CDT Oxygen Saturation 99% 10/19/2022 4:00 PM CDT Inhaled Oxygen Concentration - - Weight 88.5 kg (195 lb) 10/11/2022 2:38 PM CDT Height 172.7 cm (5' 8 ) 10/11/2022 2:38 PM CDT Body Mass Index 29.65 10/11/2022 2:38 PM CDT Plan of Treatment Health Maintenance Due Date Last Done Comments Colon Cancer Screening-Colonoscopy 1965 Depression Screening 1965 Hepatitis C Screening 1965 Prostate Cancer Screening-PSA 1965 DTaP/Tdap/Td Vaccine (1 - Tdap) 1976 Hepatitis B Screening 09/06/1983 Regular Well Visit/Exam 18-64 09/06/1983 Zoster Vaccine (1 of 2) 09/06/2015 Covid-19 Vaccine (2023-2 5 season) 2024 02/12/2021, 01/22/2021 Influenza Vaccine (#1) 2024 Pneumococcal vaccine <65 Aged Out No longer eligible based on patient's age to complete this topic Insurance Advance Directives For more information, please contact: [phone] * Full Code (Latest Code Status on File) Date Activated Date Inactivated Comments 10/19/2022 1:30 PM 10/19/2022 9:12 PM Care Teams Laboratory Equipment Cleaner Relationship Specialty Start Date End Date Lawrence Blue MD [address] [place] [address] PCP - General Family Medicine 10/25/21 Dasha Khalil NP [address] [facility] [place] [address] Nurse Practitioner Family Practice 11/12/22
--- OUTSIDE RECORDS SUMMARY | 2024-09-24 14:55 | XMS_ITS | Clinical Summary ---
Author Organization [facility] Address [address] [place] [address] Care Team Providers Care Museum Director Name Role Phone Unavailable Primary Care Provider Unavailabl e Immunizations Immunization Administration Dates Next Due Covid-19, Mrna, Lnp-s, Pf, 30 Mcg/0.3 Ml Dose (P fizer) 02/12/2021,01/22/2021 Social History Tobacco Use Types Packs/Day Years Used Date Smoking Tobacco: Never Assessed Sex and Gender Information Value Date Recorded Sex Assigned at Not on file Legal Sex Male 12:02 PM CDT Gender Identity Not on file Sexual Orientation Not on file Plan of Treatment Health Maintenance Due Date Last Done Comments Hepatitis C Virus (HCV) Screening 1965 TdaP Immunization 1965 Hepatitis B Immunization (1 of 3 - 19+ 3-dose series) 1984 Colonoscopy 2010 Colorectal Cancer Screening 2010 Cologuard 09/06/2015 Immunochemical Fecal Occult Blood 09/06/2015 Pneumococcal Immunization (5 0+ years) (1 of 1 - PCV) 09/06/2015 Zoster Immunization (1 of 2) 09/06/2015 PSA Discussion 2020 Influenza Immunization (#1) 2024 SARS-COV-2 Immunization (2023- season) 2024 02/12/2021, 01/22/2021 Respiratory Syncytial Virus (RSV) Immunization (Adult) (1 - 1-dose 75+ series) 2040 Meningococcal Immunization (ACWY) Aged Out No longer eligible b ased on patient's age to complete this topic Pneumococcal Immunization Combined Aged Out No longer eligible b ased on patient's age to complete this topic Rotavirus Immunization Aged Out No lo nger eligible based on patient's age to complete this topic
--- OUTSIDE RECORDS SUMMARY | 2024-09-24 14:55 | XMS_ITS | Referral Summary ---
Author Organization [facility] [address] [address] [address] [place] [address] Care Team Providers Care Cleaner Greaser Name Role Phone Lawrence Blue MD Primary Care Prov ider Dasha Khalil NP Unavailable [phone] Allergies No known active allergies Medications [...] (10/11/2022): Added automatically from request for surgery [id number] Assessment & Plan (10/12/2022 7:10 AM CDT): [...] CDT): After review of his CTA from [facility] as well as the duplex here today [...] his CT a head and neck from [place] and evaluate this myself, I have also ordered a carotid duplex for further evaluation. Follow-up in 1-2 weeks. Mixed hyperlipidemia 01/13/2022 Assessment & Plan (10/12/2022 7:10 AM CDT): Stable continue Crestor 40 mg. Assessment & Plan (02/04/2022 7:33 AM CDT): Crestor Assessment & Plan (01/13/2022 3:10 PM CDT): Lipitor Social History Tobacco Use Types Packs/Day Years [...] on file Sexual Orientation Not on file Last Filed Vital Signs Vital Sign Reading [...] 10/11/2022 2:38 PM CDT Plan of Treatment Not on file Insurance [facility] CHO[facility] PLUS [facility] PLUS Advance Directives For more information, please contact: [phone] * Full Code (Latest Code Status on File) Date Activated Date Inactivated Comments 10/19/2022 1:30 PM 10/19/2022 9:12 PM Care Teams Cleaner Greaser Relationship Specialty Start Date End Date Lawrence Blue MD [address] [place] [address] PCP - General Family Medicine 10/25/21 Dasha Khalil NP [address] [place], [place] [address] [address] Nurse Practitioner Family Practice 11/12/22
--- OUTSIDE RECORDS SUMMARY | 2024-09-24 14:55 | XMS_ITS | Clinical Summary ---
Author Organization [facility] Address [address] [place] [address] Care Team Providers Care Milker Machine Name Role Phone Dasha Khalil Primary Care Provider [phone] Source Comments [facility],non-owned Affiliates and Associated Physician Practices is amultiple site organization consisting of ambulatory clinics and hospital sitesin [place], [place], [place] and [place]. This disclosure is being madepursuant to the Care Everywhere program and may not contain all information available regarding this patient. Last updated 18.[facility] Allergies No known active allergies Medications * Be aware that medications may not be up to date on this document. Alwaysverify current medications with the patient. Medication Sig Dispensed Refills Start Date End Date Status atenolol (Tenormin) 50 MG tablet Take 1 (one) tablet by mouth once daily 10/25/2022 Active clopidogrel (plaVIX) 75 MG tablet Take 1 (one) tablet by mouth every morning 09/13/2022 Active escitalopram (Lexapro) 20 MG tablet Take 1 (one) tablet by mouth once daily 11/30/2022 Active lisinopril (Prinivil; Zestril) 10 MG tablet Take 1 (one) tablet by mouth once daily 09/13/2022 Active rosuvastatin (Crestor) 40 MG tablet Take 1 (one) tablet by mouth once daily 11/30/2022 Active oxyCODONE, immediate release, (Roxicodone) 5 MG tabletIndications: PAD (peripheral artery disease) Take 1 (one) tablet by mouth every 6 hours as needed 12 tablet 02/02/2023 Active acetaminophen (Tylenol) 325 MG tablet Take 2 (two) tablets by mouth every 4 hours Maximum allowable Acetaminophen amount = 4 Grams (4000 mg) / 24 hours. 02/02/2023 Active Active Problems Problem Noted Date Diagnosed Date PAD (peripheral artery disease) 02/01/2023 Claudication 10/11/2022 04/18/2023 Overview (04/18/2023): Added automatically from request for surgery [id number] Last Assessment & Plan: Bilateral lower extremity life-limiting claudication left greater than right. Risks benefits alternatives to left lower extremity angiography with possible intervention discussed, risks including bleeding, infection, perforation, contrast induced nephropathy, dissection, thrombosis, distal embolization, and need for further surgery. He wished to proceed. We will get a CTA prior to his angiogram to evaluate for inflow disease due to monophasic waveforms. Mixed hyperlipidemia 01/13/2022 04/18/2023 Overview (04/18/2023): Last Assessment & Plan: Stable continue Crestor 40 mg. Primary hypertension 01/13/2022 04/18/2023 Overview (04/18/2023): Last Assessment & Plan: Stable continue atenolol 50 mg. Stenosis of right carotid artery 01/13/2022 04/18/2023 Overview (04/18/2023): Last Assessment & Plan: After review of his CTA from [place] as well as the duplex here today he has less than 50% stenosis of the right internal carotid artery. I have recommended continue medical management with risk factor modification with ASA, Plavix, statin and good blood pressure control. He will follow-up in 6 months with repeat duplex. Social History Tobacco Use Types Packs/Day Years Used Date Smoking Tobacco: Unknown Smokeless Tobacco: Never Alcohol Use Standard Drinks/Week Comments Yes 0 (1 standard drink = 0.6 oz pur e alcohol) 8-10 beers daily AUDIT-C Answer Date Recorded Q1: How often do you have a drink containing alcohol? 4 or more times a week 02/01/2023 Q2: How many drinks containi ng alcohol do you have on a typical day when you are drinking? 7 to 9 Q3: How often do you have si x or more drinks on one occasion? Daily or almost daily 02/01/2023 Overall Financial Resource Strain (CARDIA) Answe r Date Recorded How hard is it for you to pa y for the very basics like food, housing, medical care, and heating? Very hard 02/01/2023 [facility] - Occupational Stress Questionnaire Answer Date Recorded Do you feel stress - tense, restless, nervous, or anxious, or unable to sleep at night because your mind is troubled all the time - these days? To some extent 02/01/2023 Hunger Vital Sign Answer Date Recorded Within the past 12 months, y ou worried that your food would run out before you got the money to buy more. Never true Within the past 12 months, t he food you bought just didn't last and you didn't have money to get more. Sometimes true 07/2022 PRAPARE - Transportation Answer Date Re corded In the past 12 months, has l ack of transportation kept you from medical appointments or from getting medications? No 07/2022 In the past 12 months, has l ack of transportation kept you from meetings, work, or from getting things needed for daily living? Yes 02/01/2023 Housing Stability Vital Sign Answer Nomi e Recorded In the last 12 months, was t here a time when you were not able to pay the mortgage or rent on time? Yes 02/01/2023 In the last 12 months, how many places have you lived? 1 02/01/2023 In the last 12 months, was t here a time when you did not have a steady place to sleep or slept in a fdc (including now)? No 02/01/2023 Sex and Gender Information Value Date Recorded Sex Assigned at Not on file Gender Identity Not on file Sexual Orientation Not on file Last Filed Vital Signs Vital Sign Reading Time Taken Comments Blood Pressure 147/87 02/02/2023 8:00 AM CDT Pulse 64 02/02/2023 8:00 AM CDT Temperature 36.6 C (97.9 F) 02/02/2023 8:00 AM CDT Respiratory Rate 12 02/02/2023 8:00 AM CDT Oxygen Saturation 97% 02/02/2023 8:00 AM CDT Inhaled Oxygen Concentration - - Weight 86.6 kg (191 lb) 02/01/2023 9:37 AM CDT Height 172.7 cm (5' 8 ) 02/01/2023 9:37 AM CDT Body Mass Index 29.04 02/01/2023 9:37 AM CDT Plan of Treatment Health Maintenance Due Date Last Done Comments COLOGUARD (AGES 45-75) - COL ON CA SCREENING 1965 COLON MONITORING 1965 COLONOSCOPY - COLON CA SCREENING 1965 CT COLONOGRAPHY - COLON CA SCREENING 1965 Colorectal Cancer Screening 1965 FIT - COLON CA SCREENING 1965 FLEX SIG - COLON CA SCREENING 1965 HIV SCREENING 1980 HEPATITIS C SCREENING 09/01/1983 DTAP/TDAP/TD VACCINES (1 - Tdap) 1984 HEPATITIS B VACCINE (1 of 3 - 19+ 3-dose series) 1984 PNEUMOCOCCAL VACCINE 50+ (1 of 1 - PCV) 09/06/2015 ZOSTER VACCINE (1 of 2) 09/06/2015 COVID-19 VACCINE (3 - 2023-2 5 season) 2024 02/12/2021, 01/22/2021 INFLUENZA VACCINE (#1) 2024 DEPRESSION SCREENING 07/04/2024 SCREENING FOR DIABETES 02/02/2026 3, 02/01/2023, 01/27/2023 HIB VACCINE Aged Out No longer eligi ble based on patient's age to complete this topic HPV VACCINE Aged Out No longer eligi ble based on patient's age to complete this topic MENINGOCOCCAL (Group B) VACCINE SHARED DECISION-MAKING Aged Out No longer eligible based on patient's age to complete this topic MENINGOCOCCAL GROUPS A/C/Y/W VACCINE Aged Out No longer eligible b ased on patient's age to complete this topic PNEUMOCOCCAL VACCINE Aged Out No long er eligible based on patient's age to complete this topic Medical Devices Implanted Type Area Substance Abuse Specialist Device Identifier Shelf Expiration Date Model / Serial / Lot Ptch Cv Tpr 10x1cm Photofix Implanted:Qty: 1 on 02/01/2023 by Kristen Kennedy MD at [facility] Right: Arterial Cryolife 06/05/2024 [id number] / / [id number] Procedures Procedure Name Priority Date/Time Associated Diagnosis Comments BASIC METABOLIC PANEL (CALCIUM TOTAL) STAT 02/02/2023 3:52 AM CDT PAD (peripheral artery disease) from Last 3 Months or Most Recently Relevant to Health Maintenance Results * (ABNORMAL) BASIC METABOLIC PANEL (CALCIUM TOTAL) (02/02/2023 3:52 AM CDT) BUN 10 7 - 26 mg/dL 02/02/2023 4:39 AM [facility] Creatinine 0.50(L) 0.71 - 1.16 mg/dL 02/02/2023 4:39 AM [facility] Sodium 131(L) 136 - 145 mmol/L 02/02/2023 4:39 AM [facility] Potassium 4.2 3.5 - 4.5 mmol/L 02/02/2023 4:39 AM [facility] Chloride 101 98 - 107 mmol/L 02/02/2023 4:39 AM [facility] CO2 25 22 - 29 mmol/L 02/02/2023 4:39 AM [facility] Glucose 156(H) 70 - 115 mg/dL 02/02/2023 4:39 AM [facility] Calcium 8.4 8.4 - 10.2 mg/dL 02/02/2023 4:39 AM [facility] Anion Gap 9 8 - 18 02/02/2023 4:39 AM [facility] BUN/Creatinine Ratio 20 7 - 23 02/02/2023 4:39 AM [facility] Osmolality Calculated 274 270 - 300 mOsm/kg 02/02/2023 4:39 AM [facility] eGFR by CKD-EPI >90 >=90 mL/min/1.7 3 m2 02/02/2023 4:39 AM [facility] Blood BLOOD SPECIMEN / Unknown Venipuncture / Unknown 02/02/2023 3:52 AM CDT 02/02/2023 4:14 AM T Kristen Kennedy MD LAB - CHEMISTRY [facility] [address] [place] [address], [facility] [phone] from Last 3 Months or Most Recently Relevant to Health Maintenance Advance Directives * Full Code (Latest Code Status on File) Date Activated Date Inactivated Comments 02/01/2023 5:18 PM 02/02/2023 11:54 AM Care Teams Milker Machine Relationship Specialty Start Date End Date Dasha Khalil [address] [place] [address] PCP - General 01/18/23
== END 2024-09-24 13:06 | disposition home or self-care (01) ==
PROVIDERS: PCP Family Medicine Adolescent Medicine; Visit Provider Family Medicine Adolescent Medicine
DX: I65.23 Occlusion and stenosis of bilateral carotid arteries (principal)
CPT/HCPCS: 93880

== ENCOUNTER 2025-01-28 13:01 | Outpatient (CLI) | payer OTHER, SELFPAY ==
--- NOTE | ~2025-01-28 | MR_ITS ---
MRI of the cervical spine Clinical History: Spondylosis Technique: Axial T2-weighted and gradient images, and sagittal T1-weighted, T2-weighted, and STIR awilda ges were acquired. Findings: There is no fracture or subluxation of the cervical spine. Vertebral bodies maintain normal height and alignment. No bone marrow signal abnormality seen. At C2-C3, there is no disc bulge or herniation. No spinal canal stenosis, cord compression, or neural foraminal narrowing. At C3-C4, there are degenerative distended with mild disc osteophyte complex and bilateral facet arth ropathy. There is right neural foraminal narrowing. Left neural foramen preserved. No elías canal shameka nosis or cord compression. At C4-C5, there is minimal disc osteophyte complex. No canal stenosis, cord compression, or neural fo raminal narrowing. At C5-C6, there is no significant disc bulge or herniation. No spinal canal stenosis, cord compressio n, or neural foraminal narrowing. At C6-C7, there is disc osteophyte complex. No canal stenosis or cord compression. Probable mild left neural foraminal narrowing. Right neural foramen probably preserved. No abnormal signal seen in the spinal cord. Paravertebral soft tissues are unremarkable. Impression: Mild degenerative spondylosis overall, as detailed above. Reviewed, dictated and finalized at location . Impression: Mild degenerative spondylosis overall, as detailed above.
--- NOTE | ~2025-01-28 | XR_ITS ---
XR cervical spine 4-5V 01/28/2025 14:32 Indication: Cervicalgia Procedure: 6 views of the cervical spine including flexion/extension views Comparison: No prior studies for comparison. Findings: There is disc narrowing at C3-4 with retrolisthesis. No prevertebral soft tissue swelling. No significant change to alignment with flexion/extension. There is carotid atherosclerosis. There is mild multilevel uncinate degenerative change. Impression: 1: Mild-moderate cervical spondylosis, most advanced at C3-4. 2: Prominent carotid atherosclerosis. Reviewed, dictated and finalized at location A. Impression: 1: Mild-moderate cervical spondylosis, most advanced at C3-4. 2: Prominent carotid atherosclerosis.
== END 2025-01-28 13:02 | disposition home or self-care (01) ==
LOC: MICIMG 13:02
PROVIDERS: PCP Family Medicine Adolescent Medicine; Visit Provider Nurse Practitioner Adult Health
DX: M47.812 Spondylosis without myelopathy or radiculopathy, cervical region (principal); M43.02 Spondylolysis, cervical region; I65.29 Occlusion and stenosis of unspecified carotid artery
CPT/HCPCS: 72050; 72141

== ENCOUNTER 2025-05-02 13:03 | Outpatient (CLI) | payer OTHER, SELFPAY ==
--- NOTE | ~2025-05-02 | XR_ITS ---
Examination: XR foot RT 2V Clinical History: Osteophyte, right foot Comparison: None Technique: 2 views right foot Findings/impression: 1. Large osteophyte distal first metatarsal dorsal surface with exophytic projection. 2. Severe degenerative changes first MTP joint. 3. No acute abnormality. Reviewed, dictated and finalized at location .
== END 2025-05-02 13:04 | disposition home or self-care (01) ==
PROVIDERS: PCP Family Medicine Adolescent Medicine; Visit Provider Family Medicine Adolescent Medicine
DX: M25.774 Osteophyte, right foot (principal); M19.071 Primary osteoarthritis, right ankle and foot
CPT/HCPCS: 73620

== ENCOUNTER 2025-05-13 11:21 | Outpatient (CLI) | payer OTHER, SELFPAY ==
--- NOTE | 2025-05-13 11:43 | ECG_ITS ---
Test Date: 2025-05-13 11:48:43 Measurements Intervals Arnold Rate: 56 P: 16 GA: 146 QRS: 47 QRSD: 105 T: 26 QT: 403 QTc: 392 Interpretive Statements SINUS BRADYCARDIA No previous ECG available for comparison Electronically Signed On 05-14-2025 17:28:03 [employer] by Naomie Hopkins M.D.
--- OUTSIDE RECORDS SUMMARY | 2025-05-13 12:14 | XMS_ITS | Clinical Summary ---
Author Organization [facility] Address [address] [place] [address] Care Team Providers Care Rn Enterostomal Name Role Phone Unavailable Primary Care Provider [...] of 3 - 19+ 3-dose series) 1984 Cologuard 2010 Colonoscopy 2010 Colorectal Cancer Screening 2010 Immunochemical Fecal Occult Blood 2010 Pneumococcal Immunization (5 0+ years) (1 of 1 - PCV) 09/06/2015 Zoster Immunization (1 of 2) 09/06/2015 Influenza Immunization (#1) 2025 SARS-COV-2 Immunization (3 - 2024- season) 2025 02/12/2021, 01/22/2021 Respiratory Syncytial Virus (RSV) Immunization (Adult) (1 - 1-dose 75+ series) 2040 Human Papillomavirus (HPV) Immunization Aged Out No longer eligible b ased on patient's age to complete this topic Meningococcal Immunization (ACWY) Aged Out No longer eligible b ased on patient's age to complete this topic Rotavirus Immunization Aged Out No lo nger eligible based on patient's age to complete this topic
--- OUTSIDE RECORDS SUMMARY | 2025-05-13 12:14 | XMS_ITS | Clinical Summary ---
Author Organization [facility] [address] [address] Address [address] [place] [address] Care Team Providers Care Media Job Titles Name Role Phone Lawrence Blue MD Primary Care Prov ider Dasha Khalil NP Unavailable [phone] Allergies No known active allergies Medications [...] (10/11/2022): Added automatically from request for surgery [id number] Assessment & Plan (10/12/2022 7:10 AM CDT): [...] CDT): After review of his CTA from [place] as well as the duplex here today [...] his CT a head and neck from [place] and evaluate this myself, I have also [...] 2:38 PM CDT Height 172.7 cm (5' 8) 10/11/2022 2:38 PM CDT Body Mass Index 29.65 10/11/2022 2:38 PM CDT Plan of Treatment Health Maintenance Due Date Last Done Comments Colon Cancer Screening-Colonoscopy 1965 Depression Screening 1965 Hepatitis C Screening 1965 Prostate Cancer Screening-PSA 1965 DTaP/Tdap/Td Vaccine (1 - Tdap) 1976 Hepatitis B Screening 09/06/1983 Regular Well Visit/Exam 18-64 09/06/1983 Zoster Vaccine (1 of 2) 09/06/2015 Covid-19 Vaccine (2024-2 6 season) 2025 02/12/2021, 01/22/2021 Influenza Vaccine (#1) 2025 Pneumococcal vaccine <65 Aged Out No longer eligible based on patient's age to complete this topic Insurance [facility] Address: [place] [address] [facility] Address: [place] [address] [facility] Address: [facility] [address] [id number] Advance Directives For more information, please contact: [phone] * Full Code (Latest Code Status on File) Date Activated Date Inactivated Comments 10/19/2022 1:30 PM 10/19/2022 9:12 PM Care Teams Media Job Titles Relationship Specialty Start Date End Date Lawrence Blue MD PCP - General Family Medicine 10/25/21 Dasha Khalil NP [address] [place] [address] Nurse Practitioner Family Practice 11/12/22
--- OUTSIDE RECORDS SUMMARY | 2025-05-13 12:14 | XMS_ITS | Clinical Summary ---
Author Organization [facility] Address [address] [place] [address] Care Team Providers Care Skiing Instructor Name Role Phone Dasha Khalil Primary Care Provider [phone] Source Comments [facility],non-owned Affiliates and Associated Physician Practices is amultiple site organization consisting of ambulatory clinics and hospital sitesin [place], [place], [place] and [place]. This disclosure is being madepursuant to the Care Everywhere program and may not contain all information available regarding this patient. Last updated 18.[facility] Allergies No known active allergies Medications * Be aware that medications may not be up to date on this document. Alwaysverify current medications with the patient. atenolol (Tenormin) 50 MG tablet Take 1 (one) tablet by mouth once daily 3 Active clopidogrel (plaVIX) 75 MG tablet Take 1 (one) tablet by mouth every morning 3 Active escitalopram (Lexapro) 20 MG tablet Take 1 (one) tablet by mouth once daily 3 Active lisinopril (Prinivil; Zestril) 10 MG tablet Take 1 (one) tablet by mouth once daily 3 Active rosuvastatin (Crestor) 40 MG tablet Take 1 (one) tablet by mouth once daily 3 Active oxyCODONE, immediate release, (Roxicodone) 5 MG tabletIndicati ons:PAD (peripheral artery disease) Take 1 (one) tablet by mouth every 6 hours as needed 12 tablet 3 Active acetaminophen (Tylenol) 325 MG tablet Take 2 (two) tablets by mouth every 4 hours Maximum allowable Acetaminophen amount = 4 Grams (4000 mg) / 24 hours. 3 Active Active Problems Problem Noted Date Diagnosed Date PAD (peripheral artery disease) 02/01/2023 Claudication 10/11/2022 04/18/2023 Overview (04/18/2023): Added automatically from request for surgery [id number] Last Assessment & Plan: Bilateral lower extremity [...] Plan: After review of his CTA from [place] as well as the duplex here today [...] medical care, and heating? Very hard 02/01/2023 [facility] - Occupational Stress Questionnaire Answer Date Recorded [...] place to sleep or slept in a mcc (including now)? No 02/01/2023 Sex and Gender Information Value Date Recorded Sex Assigned at Not on file Legal Sex Male 1:55 PM CDT Gender Identity Not on file [...] 9:37 AM CDT Height 172.7 cm (5' 8) 02/01/2023 9:37 AM CDT Body Mass Index [...] 09/06/2015 ZOSTER VACCINE (1 of 2) 09/06/2015 DEPRESSION SCREENING 07/04/2024 COVID-19 VACCINE (3 - 2024-2 6 season) 2025 02/12/2021, 01/22/2021 INFLUENZA VACCINE (#1) 2025 SCREENING FOR DIABETES 02/02/2026 , 02/01/2023, 01/27/2023 HIB VACCINE Aged Out No [...] this topic Medical Devices Implanted Type Area Radio Engineering Teacher Device Identifier Shelf Expiration Date Model / Serial / Lot Ptch Cv Tpr 10x1cm Photofix Implanted:Qty: 1 on 02/01/2023 by Kristen Kennedy MD at [facility] Right: Arterial Cryolife 06/05/2024 [id number] / / [id number] Procedures Procedure Name Priority Date/Time Associated Diagnosis Comments BASIC METABOLIC PANEL (CALCIUM TOTAL) STAT 02/02/2023 3:52 AM CDT PAD (peripheral artery disease) from Last 3 Months or Most Recently Relevant to Health Maintenance Results * (ABNORMAL) BASIC METABOLIC PANEL (CALCIUM TOTAL) (02/02/2023 3:52 AM CDT) BUN 10 7 - 26 mg/dL 02/02/2023 4:39 AM [facility] Creatinine 0.50(L) 0.71 - 1.16 mg/dL 02/02/2023 4:39 AM [facility] Sodium 131(L) 136 - 145 mmol/L 02/02/2023 4:39 AM [facility] Potassium 4.2 3.5 - 4.5 mmol/L 02/02/2023 4:39 AM [facility] Chloride 101 98 - 107 mmol/L 02/02/2023 4:39 AM [facility] CO2 25 22 - 29 mmol/L 02/02/2023 4:39 AM [facility] Glucose 156(H) 70 - 115 mg/dL 02/02/2023 4:39 AM [facility] Calcium 8.4 8.4 - 10.2 mg/dL 02/02/2023 4:39 AM [facility] Anion Gap 9 8 - 18 02/02/2023 4:39 AM [facility] BUN/Creatinine Ratio 20 7 - 23 02/02/2023 4:39 AM [facility] Osmolality Calculated 274 270 - 300 mOsm/kg 02/02/2023 4:39 AM [facility] eGFR by CKD-EPI >90 >=90 mL/min/1.7 3 m2 02/02/2023 4:39 AM [facility] Blood BLOOD SPECIMEN / Unknown Venipuncture / Unknown 02/02/2023 3:52 AM CDT 02/02/2023 4:14 AM CDT us Kristen Kennedy MD LAB - CHEMISTRY ORDERABLES Final Result [facility] [address] [place] [address], [facility] [phone] from Last 3 Months or Most Recently Relevant to Health Maintenance Insurance [facility] Advance Directives * Full Code (Latest Code Status on File) Date Activated Date Inactivated Comments 02/01/2023 5:18 PM 02/02/2023 11:54 AM Care Teams Skiing Instructor Relationship Specialty Start Date End Date Dasha Khalil [address] [place] [address] PCP - General 01/18/23
== END 2025-05-13 11:22 | disposition home or self-care (01) ==
PROVIDERS: PCP Family Medicine Adolescent Medicine; Visit Provider Orthopaedic Surgery
DX: R00.1 Bradycardia, unspecified (principal); I10 Essential (primary) hypertension
CPT/HCPCS: 93005

== ENCOUNTER 2025-05-16 01:40 | Day surgery (SDC) | payer OTHER, SELFPAY ==
[2025-05-09 10:49] VITALS: BMI 27.4
--- NOTE | 2025-05-09 10:53 | PC.NURSE ---
[facility] has started construction of its new state of the art ER which will open Spring 2026. With this, we anticipate parking may be a challenge for some our surgical patients and families. Parking spaces are limited but are available for all Surgical, obstetrics, and ER patients sharing this lot. If you arrive and find you are having a hard time finding a parking space, please note that we understand the challenges, please drive around the hospital and park near Hospital Entrance 1. When you enter this entrance, you can ask a volunteer to direct or take you back to the surgical waiting area to check in. We appreciate everyone?s understanding of these expected challenges while we build for your future. Report to the Outpatient Waiting Room, entrance under the green pavilion located off [address], at time _0630_ on date _[id number]_. Planned Procedure Time: _0830_.? Time changes happen often and if your time is changed the preop area will call you the afternoon before. - You and your visitor will be asked to self-screen and do not enter if you have any COVID symptoms. Please call surgeon if you need to reschedule. - A mask is optional within the hospital at this time. Patients may have clear liquids (water, carbonated beverages, clear teas, apple juice) until 3 hours prior to surgery with a maximum of 20 ounces. - No food from midnight until time of surgery and no smoking, or chewing tobacco (or any form of nicotine). No chewing gum, candy or mints. Take only the following medications with a SIP of water on the morning of surgery: __Atenolol____ DO NOT STOP ANY OF YOUR OTHER PRESCRIPTION MEDICATIONS PRIOR TO SURGERY EXCEPT THE FOLLOWING Hold all vitamins and supplements for 3 days per anesthesiologist. Medications to discontinue per physician Call Dr Bryant about Clopidogrel and when to stop. If fail to get an opinion then hold for 7 days starting tomorrow 05-10-2025. Date to take last dose Please no make-up, nail latvian, hairspray, perfume, deodorant, or body powder the day of surgery.? No jewelry (including any body piercings) or valuables the day of surgery, leave them at home.? Please take a shower or bath the night before, or the morning of, surgery with an antibacterial soap.? Wear comfortable, loose fitting clothing.? - Jewelry must be removed prior to entering the operating room.? Rings and piercings that are not removed may be cut off. - The hospital will not accept responsibility for valuables.? - Please leave all valuables, including medications, at home the day of surgery. If you are going home after surgery, a licensed trolley coach driver must drive you home.? - NO public transportation without another adult if you receive anesthesia. - We recommend that an adult stay with you for 24 hours following discharge. - We also recommend that you do not drive, make important decision, drink alcoholic beverages, or take any drugs that were not prescribed by your health care provider for at least 24 hours after your discharge time. Follow any additional instructions given to you from your surgeon. Telephone instructions given to __Robert___and asked if any additional questions and then verbalized understanding. Patient advised to call surgeon office or pre surgery nurse liaison [phone] if any additional questions.
[2025-05-16] VITALS (9 sets, daily range): BP systolic 100–161; BP diastolic 66–81; PULSE 51–60; RESP 10–20; TEMP 36.1–37.6; O2SAT 96–100
--- NOTE | ~2025-05-16 | XR_ITS ---
EXAM/PROCEDURE: XR surgery orthopedic HISTORY: RIGHT HALLUX METATARSOPHALANGEAL ARTHRODESIS COMPARISON: None available. Fossae time: 0.2 minutes DP: 1.9668 cGy square centimeter Images for internal fixation of great toe MTP joint submitted. IMPRESSION: Fluoroscopic images as above. See also surgical/operative notes for complete details. Reviewed, dictated and finalized at location A. PATIONAL THERAPIST IMPRESSION: Fluoroscopic images as above. See also surgical/operative notes for complete de tails.
--- OUTSIDE RECORDS SUMMARY | 2025-05-16 01:43 | XMS_ITS | Clinical Summary ---
Author Organization [facility] Address [address] [place] [address] Care Team Providers Care Screen Printing Equipment Setter Name Role Phone Dasha Khalil Primary Care Provider [phone] Source Comments [facility],non-owned Affiliates and Associated Physician Practices is amultiple site organization consisting of ambulatory clinics and hospital sitesin [place], [place], [place] and [place]. This disclosure is being madepursuant to the Care Everywhere program and may not contain all information available regarding this patient. Last updated 18.[facility] Allergies No known active allergies Medications * [...] (04/18/2023): Added automatically from request for surgery [id number] Last Assessment & Plan: Bilateral lower extremity [...] Plan: After review of his CTA from [place] as well as the duplex here today [...] medical care, and heating? Very hard 02/01/2023 [facility] - Occupational Stress [...] place to sleep or slept in a detention (including now)? No 02/01/2023 Sex and Gender [...] this topic Medical Devices Implanted Type Area Raspberry Checker Device Identifier Shelf Expiration Date Model / Serial / Lot Ptch Cv Tpr 10x1cm Photofix Implanted:Qty: 1 on 02/01/2023 by Kristen Kennedy MD at [facility] Right: Arterial Cryolife 06/05/2024 [id number] / / [id number] Procedures Procedure Name Priority Date/Time Associated Diagnosis Comments BASIC METABOLIC PANEL (CALCIUM TOTAL) STAT 02/02/2023 3:52 AM CDT PAD (peripheral artery disease) from Last 3 Months or Most Recently Relevant to Health Maintenance Results * (ABNORMAL) BASIC METABOLIC PANEL (CALCIUM TOTAL) (02/02/2023 3:52 AM CDT) BUN 10 7 - 26 mg/dL 02/02/2023 4:39 AM [facility] Creatinine 0.50(L) 0.71 - 1.16 mg/dL 02/02/2023 4:39 AM [facility] Sodium 131(L) 136 - 145 mmol/L 02/02/2023 4:39 AM [facility] Potassium 4.2 3.5 - 4.5 mmol/L 02/02/2023 4:39 AM [facility] Chloride 101 98 - 107 mmol/L 02/02/2023 4:39 AM [facility] CO2 25 22 - 29 mmol/L 02/02/2023 4:39 AM [facility] Glucose 156(H) 70 - 115 mg/dL 02/02/2023 4:39 AM [facility] Calcium 8.4 8.4 - 10.2 mg/dL 02/02/2023 4:39 AM [facility] Anion Gap 9 8 - 18 02/02/2023 4:39 AM [facility] BUN/Creatinine Ratio 20 7 - 23 02/02/2023 4:39 AM [facility] Osmolality Calculated 274 270 - 300 mOsm/kg 02/02/2023 4:39 AM [facility] eGFR by CKD-EPI >90 >=90 mL/min/1.7 3 m2 02/02/2023 4:39 AM [facility] Blood BLOOD SPECIMEN / Unknown Venipuncture / Unknown 02/02/2023 3:52 AM CDT 02/02/2023 4:14 AM CDT us Kristen Kennedy MD LAB - CHEMISTRY ORDERABLES Final Result [facility] [address] [place] [address], [facility] [phone] from Last 3 Months or Most Recently Relevant to Health Maintenance Insurance [facility] Advance Directives * Full Code (Latest Code Status on File) Date Activated Date Inactivated Comments 02/01/2023 5:18 PM 02/02/2023 11:54 AM Care Teams Screen Printing Equipment Setter Relationship Specialty Start Date End Date Dasha Khalil [address] [place] [address] PCP - General 01/18/23
--- OUTSIDE RECORDS SUMMARY | 2025-05-16 01:43 | XMS_ITS | Clinical Summary ---
Author Organization [facility] [address] [address] Address [address] [place] [address] Care Team Providers Care Immersion Metal Cleaner Name Role Phone Lawrence Blue MD Primary Care Prov ider Dasha Khalil NP Unavailable [phone] Allergies No known active allergies Medications [...] (10/11/2022): Added automatically from request for surgery [id number] Assessment & Plan (10/12/2022 7:10 AM CDT): [...] CDT): After review of his CTA from [place] as well as the duplex here today [...] his CT a head and neck from [place] and evaluate this myself, I have also [...] patient's age to complete this topic Insurance [facility] Address: [place] [address] [facility] Address: [place] [address] [facility] Address: [facility] [address] [id number] Advance Directives For more information, please contact: [phone] * Full Code (Latest Code Status on File) Date Activated Date Inactivated Comments 10/19/2022 1:30 PM 10/19/2022 9:12 PM Care Teams Immersion Metal Cleaner Relationship Specialty Start Date End Date Lawrence Blue MD PCP - General Family Medicine 10/25/21 Dasha Khalil NP [address] [place] [address] Nurse Practitioner Family Practice 11/12/22
--- OUTSIDE RECORDS SUMMARY | 2025-05-16 01:43 | XMS_ITS | Clinical Summary ---
Author Organization [facility] Address [address] [place] [address] Care Team Providers Care Wet Milling Wheel Operator Name Role Phone Unavailable Primary Care Provider [...]
--- NOTE | 2025-05-16 06:28 | WPDHPUPDATE1 ---
History and Physical Update Update Date/Time: 05/16/25 06:28 History and Physical has been reviewed, including an updated exam of the patient. There are NO changes in the patient's condition. Risks, benefits, and alternatives have been discussed and questions answered. Patient agrees to proceed with procedure.
--- NOTE | 2025-05-16 07:19 | WPDANESEPPF ---
Anes - Initial Pre Proc Eval Procedure: Operation Date: 05/16/25 08:30 Proposed Procedures p Right Hallux Metatarsophalangeal Arthrodesis - Clyde Conley MD Date/Time: 05/16/25 07:19 Surgeon: Clyde Conley MD Pre Op Diagnosis: Rt Hallux Rigidus , arthritits Patient Data Age: 59 Gender: M Height: 1.73 m Weight: 81.8 kg Allergies Allergy/AdvReac Type Severity Reaction Status Date / Time No Known Allergies Allergy Mild Verified 05/09/25 10:39 Home Medications ?Medication ?Instructions ?Recorded ?Confirmed ?Type multivitamin 1 tablet PO DAILY 08/03/24 05/09/25 History atenolol 50 mg tablet 50 mg PO DAILY #90 tabs 04/30/25 05/09/25 Rx clopidogrel 75 mg tablet 75 mg PO QAM #90 tabs 04/30/25 05/09/25 Rx hydrocodone 10 mg-acetaminophen 0.5 tablet PO QID PRN pain #30 tabs 04/30/25 05/09/25 Rx 325 mg tablet lisinopril 10 mg tablet 10 mg PO DAILY #90 tabs 04/30/25 05/09/25 Rx pravastatin 20 mg tablet 20 mg PO DAILY #90 tabs 04/30/25 05/09/25 Rx Patient hx anesthesia problems: none Family hx anesthesia problems: none Results Review: All pre-operative results and documents have been reviewed as part of the pre-operative evaluation. [facility] Past Medical History Medical History Hallux rigidus of right foot Cervical radiculopathy Myofascial neck pain Cervical spondylosis BMI 28.0-28.9,adult History of TIA (transient ischemic attack) Hypertension Surgical History Surgical History History of hernia repair at Family History Family History Father Heart disease Hypertension Mother Sibling No problems noted. Social History Social History Smoking status: Never smoker Second hand tobacco smoke exposure: No Additional smoking assessment comments: smokes weed Alcohol intake: current Drinks per week: 70 Alcohol use details: 10-12 Beers daily Substance use: current Substance use type: marijuana Other substance usage details: Daily Do You Feel Safe in your Home?: Yes Lack of Transportation: No Lack of Food: Never True Current Housing: I Have Housing Concerned About Future Housing: No Difficulty Paying Gas/Electric Bills: No Difficulty Paying for Meds: No Currently Unemployed: No Education: Trade/Vocational Certificate Difficulty w/ Childcare or Family Care: No Living arrangements: alone Occupation/Education: occupation 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 Gender identity (if verbalized by the patient): Male Sexual Orientation (if Verbalized by the Patient): Straight or Heterosexual Spiritual care concerns: No Agree to blood products: Yes Anes - Eval Final PreProcedure Day of Procedure 05/16/25 07:19 Patient weight: overweight Heart: regular rate and rhythm Lungs: clear to auscultation Airway: Mallampati scale class II Neurological: alert and oriented Last oral intake: >/= 8 hours ASA classification: II Emergent: no Anesthetic plan: proceed Anesthesia type and monitoring: general LMA and standard monitoring Results Review: All pre-operative results and documents have been reviewed as part of the pre-operative evaluation. Informed Consent: The patient's anesthetic plan and its attendant risks and benefits were discussed with the patient/family/POA. Questions were solicited and answers provided to the satisfaction of the patient/family/POA.
[2025-05-16] MEDS: LACTATED RINGERS 1,000 ML 30 ML IV CONT ×2 (07:30→09:01)
[2025-05-16] MEDS: ACETAMINOPHEN 500 MG TABLET 1000 MG PO (07:46)
[2025-05-16] MEDS: KETOROLAC 15 MG/ML VIAL (*BKC) IV PUSH (07:47)
--- NOTE | 2025-05-16 09:02 | P.OP_ITS ---
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 Pain with shoe wear and activity. Unrelieved with conservative measures. Presents for o perative treatment. Description of Procedure Patient identified in the preoperative holding. Informed consent given. Operative extremity marked. Patient received intravenous antibiotics. Patient brought to the operating room where underwent general anesthetic by anesthesia team. Positioned supine on operating room table. Time-out performed confirming the patient, site of the surgery and the plan. Right foot prepped and draped usual sterile surgical fashion using a ChloraPrep skin solution. Foot and ankle exsanguinated and a calf tourniquet inflated to 225 mmHg. Longitudinal incision made dorsum of hallux centered over metatarsophalangeal joint with a 15 blade knife. Hemostasis controlled electrocautery. Extensor hallucis tendon re tracted laterally and a dorsal capsulotomy performed in line with the longitudinal skin incision. Soft tissue released off of the metatarsal to expose the joint. Extensive scar and fibrosis of the joint noted. Severe degenerative changes of the entire joint as well as large dorsal osteophyte from the 1st metatarsal noted. Rongeur used to remove excess osteophytes. Reaming of the joint then performed with the Arthrex joint preparation reamers. Guide pin placed in the intramedullary canal of the 1st metatarsal and reaming performed with size 18 mm. Guide pin then placed in the proximal phalanx and reaming performed to a size 18 mm. Wound thoroughly irrigated and debris removed. Plantar osteophytes carefully removed. Joint then aligned and provisionally pinned. Alignment checked with image intensification. Fixation achieved with a dorsal locking plate with compression and a 4.0 mm lag screw. Image intensification confirmed final position. Wound irrigated and capsule closed with 3-0 Monocryl interrupted suture. Subcutaneous tissue repaired with 3-0 Monocryl interrupted suture and skin repaired with 4-0 nylon interrupted suture. Sterile dressing applied. Tourniquet released. Good capillary refill noted in the toe. Patient awoke from anesthesia, extubated and taken to the recovery room in stable condition. All sponge, needle, instrument counts correct at the end of the case. Implants Arthrex hallux MTP arthrodesis plate and screws, 4.0 mm cannulated screw x1 Estimated Blood Loss 5 Tourniquet Time Total Tourniquet Time: 70 Drains No Packing No Pathology None sent Complications None Condition Stable Disposition PACU [facility] Billing Surgery - Charge Forward: Surgery Billing ([id number])
[2025-05-16] MEDS: ceFAZolin 2 GM in SODIUM CHLORIDE 0.9% IV 50 ML 100 ML IVPB (09:03)
[2025-05-16] MEDS: BUPivacaine HCL 0.5% 10 ML AMP 20 ML INFILTRATE (09:40)
[2025-05-16] MEDS: oxyCODONE HCL (*CRX) 5 MG TAB IR PO (12:15)
== END 2025-05-16 12:50 | disposition home or self-care (01) ==
PROVIDERS: PCP Family Medicine Adolescent Medicine; Visit Provider Orthopaedic Surgery
PROC: (CPT 28750; principal; 2025-05-16 08:30)
DX: M20.21 Hallux rigidus, right foot (principal); M25.774 Osteophyte, right foot; I10 Essential (primary) hypertension; M43.02 Spondylolysis, cervical region; F12.90 Cannabis use, unspecified, uncomplicated; Z79.891 Long term (current) use of opiate analgesic; Z79.02 Long term (current) use of antithrombotics/antiplatelets; Z98.890 Other specified postprocedural states; Z86.73 Personal history of transient ischemic attack (TIA), and cerebral infarction without residual deficits; Z82.49 Family history of ischemic heart disease and other diseases of the circulatory system
CPT/HCPCS: 28750; 99199; J0690; A9270; C1713; C1769; J1885; J2003; J2250; J2270; J2371; J2405; J2704; J3010; J7120

== ENCOUNTER 2025-05-25 17:13 | Emergency (ER) | payer OTHER, SELFPAY ==
[2025-05-25] VITALS (32 sets, daily range): BP systolic 91–192; BP diastolic 56–142; PULSE 84–128; RESP 17–37; TEMP 36.8–37.1; O2SAT 96–100
--- NOTE | ~2025-05-25 | CT_ITS ---
EXAMINATION: CT brain wo candido, 05/25/2025 18:05 RECRUITMENT MANAGER HISTORY: fall COMPARISON: No comparisons available. Technique: Axial images obtained of the brain without contrast. One or more of the following dose reduction techniques were used: automated exposure control, adjustment of the mA and/or kV according to patient size, use of iterative reconstruction technique. Findings: No acute infarct or parenchymal hemorrhage. No abnormal mass or mass effect. No midline shift. No extra-axial fluid collections. No hydrocephalus. Mastoid air cells unremarkable. Sinuses and orbits unremarkable. No acute fracture. No significant facial or scalp soft tissue swelling evident. No radiopaque foreign body is seen. Impression: 1.No acute intracranial abnormality. Reviewed, dictated and finalized at location P. UITMENT MANAGER Impression: 1.No acute intracranial abnormality.
--- NOTE | ~2025-05-25 | CT_ITS ---
EXAMINATION: CTA abd aorta runoff, 05/25/2025 18:05 INSPECTOR HAIRSPRING HISTORY: left leg pain, numbness, decreased pulses COMPARISON: No comparisons available. TECHNIQUE: CTA with 3-D reconstructions scan of the abdomen pelvis and bilateral lower extremities was performed with contrast. Isovue 300, 92cc injected IV. One or more of the following dose reduction techniques were used: automated exposure control, adjustment of the mA and/or kV according to patient size, use of iterative reconstruction technique. Unless otherwise stated, incidental findings do not require dedicated follow up imaging FINDINGS: AORTA/VASCULATURE: Normal caliber aorta. There are calcified atherosclerotic changes of the aorta and its branches, the major aortic tributaries are grossly patent. There is dense calcified plaque in the distal aorta extending into the left and right common iliac arteries bilaterally There is 80% stenosis of the origin of the left common iliac artery with minimal atherosclerotic changes of the left external and internal iliac vessels. There is dense calcified plaque noted within the proximal left common femoral artery with 90% stenosis with moderate to severe atherosclerotic changes of the left superficial femoral vessel with 90% stenosis noted proximally. The left popliteal artery demonstrates moderate atherosclerotic changes with 50% stenosis just below the level of the knee. There are moderate atherosclerotic changes of the vessels below the knee however the peroneal, posterior tibial and anterior tibial vessels are grossly patent, the level of the ankle majority of the flow is within the posterior tibial artery with minimal flow in the anterior tibial vessel. There is 50% stenosis of the origin of the right common iliac artery from calcified plaque. Atherosclerotic changes of the right external and internal iliac vessels noted. Atherosclerotic changes noted of the left common and superficial femoral arteries with 50% stenosis in the proximal right superficial femoral artery from calcified plaque. There is complete occlusion of the distal right superficial femoral artery at its junction with the popliteal artery with reconstitution of the popliteal artery. There is near complete occlusion of the distal popliteal artery proximal to the bifurcation. Moderate atherosclerotic changes are noted in the peroneal, posterior tibial and anterior tibial vessels. The level of the ankle there is flow within the posterior tibial and minimal flow in the anterior tibial vessels. CT abdomen: LUNG BASES: The lung bases are clear. The visualized portions of the heart and pericardium are unremarkable. LIVER: Within the right lobe liver there is an enhancing solid appearing liver lesion measuring 3.7 x 3.6 cm. There are cirrhotic changes of the liver with nodularity of the liver contours. The portal vein appears grossly patent. There is no intrahepatic biliary duct dilatation. SPLEEN: Unremarkable, no splenomegaly. KIDNEYS: Right Kidney: Arising from the level of the right kidney there is a solid heterogeneous partially cystic lesion concerning for neoplasm measuring 5.4 x 5 cm with extension into the collecting system. Left Kidney: Left kidney subcentimeter probable renal cysts. ADRENAL GLANDS: Unremarkable. PANCREAS: Prominent peripancreatic lymph nodes are noted. GALLBLADDER/BILIARY: The gallbladder is contracted with mucosal hyperemia and cholelithiasis. STOMACH AND ESOPHAGUS: The stomach appears distended. Small hiatal hernia with thickening of the esophagus may represent esophagitis. BOWEL/MESENTERY: Moderate fecal content. Moderate diverticulosis. No colitis or diverticulitis. The appendix appears normal. There is no stranding within the mesentery. There are no thickened or dilated loops of small bowel. ADENOPATHY/RETROPERITONEUM: No lymphadenopathy. FREE FLUID OR FREE AIR: No free fluid.. CT pelvis: SOLID ORGANS/REPRODUCTIVE: The prostate is enlarged, correlate with PSA. BLADDER: Within normal limits. OSSEOUS STRUCTURES: There are postsurgical changes noted involving the right first digit with severe degenerative changes of the first metatarsophalangeal joints bilaterally. No sclerotic or lytic lesions are identified. OVERLYING SOFT TISSUES: Unremarkable. IMPRESSION: 1. Severe atherosclerotic disease with critical stenoses detailed above and occlusion of the distal right superficial femoral artery. Conventional angiogram is recommended. 2. Cirrhotic disease of the liver with liver lesion concerning for neoplasm. 3. Right renal lesion concerning for neoplasm. 4. Contrast-enhanced MRI is recommended to assess Reviewed, dictated and finalized at location P. ECTOR HAIRSPRING IMPRESSION: 1. Severe atherosclerotic disease with critical stenoses detailed above and occ lusion of the distal right superficial femoral artery. Conventional angiogram i s recommended. 2. Cirrhotic disease of the liver with liver lesion concerning for neoplasm. 3. Right renal lesion concerning for neoplasm. 4. Contrast-enhanced MRI is recommended to assess
--- NOTE | ~2025-05-25 | CT_ITS ---
EXAMINATION: CTA chest PE protocol, 05/25/2025 18:05 MARKETING LIAISON HISTORY: cp, sob, tachycardia, recent surgery COMPARISON: No comparisons available. TECHNIQUE: CTA examination is obtained with contrast CTA examination technique is performed with arterial phase of contrast-enhancement. 3-D reconstruction with thin MIP axial and MPR coronal imaging is provided Isovue 300, 92cc injected IV. One or more of the following dose reduction techniques were used: automated exposure control, adjustment of the mA and/or kV according to patient size, use of iterative reconstruction technique. FINDINGS: No significant coronary calcification is present ([id number]) LUNGS: The contrast bolus is adequate, there is no pulmonary embolism. No tracheomalacia. No bronchiectasis. No significant emphysematous or pulmonary fibrotic changes. HEART AND PERICARDIUM: Within normal limits. AORTA: Normal caliber aorta.. PULMONARY ARTERIES: No pulmonary embolism ADENOPATHY/MEDIASTINUM: None. LIMITED VIEWS OF THE ABDOMEN: There is thickening of the esophagus which may represent esophagitis. OSSEOUS STRUCTURES: Sclerotic changes are noted of the liver with nodularity of the liver contours. OVERLYING SOFT TISSUES: Unremarkable. THYROID: The thyroid is unremarkable. IMPRESSION: 1. Negative for pulmonary embolism. No acute process is identified. Reviewed, dictated and finalized at location P. ETING LIAISON
--- NOTE | ~2025-05-25 | CT_ITS ---
EXAMINATION: CT cervical spine wo con COMPARISON: None HISTORY: fall TECHNIQUE: Axial images were obtained through the spine without IV contrast. Coronal, sagittal reconstruction images were obtained from the axial views. CT scan performed using dose optimization techniques including the following automated exposure control; adjustment of mA and/or kV; use of iterative reconstruction technique. Automatic exposure control was used to reduce radiation dose. Permanent radiation dose record is archived to PACS. FINDINGS: The vertebral heights are intact. No fracture or subluxation. There is severe loss of disc height at C3-4 with moderate to severe canal and foraminal stenosis. Soft tissues unremarkable. Impression: No acute abnormality. Reviewed, dictated and finalized at location P. MANAGEMENT SPECIALIST Impression: No acute abnormality.
--- NOTE | 2025-05-25 17:19 | ECG_ITS ---
Test Date: 2025-05-25 17:22:26 Measurements Intervals Cornish Rate: 123 P: 61 OK: 151 QRS: 66 QRSD: 90 T: 51 QT: 298 QTc: 428 Interpretive Statements SINUS TACHYCARDIA minimal st depression Electronically Signed On 05-25-2025 22:55:26 NAME PLATE STAMPER by Naomie Hopkins M.D.
--- NOTE | 2025-05-25 17:38 | PC.NURSE ---
able to doppler femoral pulse
--- OUTSIDE RECORDS SUMMARY | 2025-05-25 17:46 | XMS_ITS | Clinical Summary ---
Author Organization [facility] [address] [address] [address] [place] [address] Care Team Providers Care Wood Die Maker Name Role Phone Lawrence Blue MD Primary Care Prov ider Dasha Khalil NP Unavailable [phone] Allergies No known active allergies Medications [...] (10/11/2022): Added automatically from request for surgery [id number] Assessment & Plan (10/12/2022 7:10 AM CDT): [...] CDT): After review of his CTA from [place] as well as the duplex here today [...] his CT a head and neck from [place] and evaluate this myself, I have also [...] patient's age to complete this topic Insurance [address] [place] [id number] Advance Directives For more information, please contact: [phone] * Full Code (Latest Code Status on File) Date Activated Date Inactivated Comments 10/19/2022 1:30 PM 10/19/2022 9:12 PM Care Teams Wood Die Maker Relationship Specialty Start Date End Date Lawrence Blue MD PCP - General Family Medicine 10/25/21 Dasha Khalil NP [address] [place] [address] Nurse Practitioner Family Practice 11/12/22
--- OUTSIDE RECORDS SUMMARY | 2025-05-25 17:46 | XMS_ITS | Clinical Summary ---
Author Organization [facility] Address [address] [place] [address] Care Team Providers Care Bridge Welder Name Role Phone Unavailable Primary Care Provider [...]
[2025-05-25 17:47] LABS: Hematocrit 25.4 % (42.0-52.0); Hemoglobin 7.7 g/dL (14.0-18.0); Immature Granulocyte Percent A 2.2 % (0-0.5); Lymphocytes Absolute Auto 2.03 K/mm3 (0.9-3.2); Mean Corpuscular HGB Conc 30.3 g/dl (32-36); Mean Corpuscular Hemoglobin 25.5 pg (26-34); Mean Corpuscular Volume 84.1 fl (80-100); Nucleated Red Blood Cells Absolute Auto 0.000 K/mm3 (0.0-0.012); Nucleated Red Blood Cells Perc 0.0 % (0.0-0.2); Platelet Count Result 243 k/mm3 (150-375); Red Blood Count 3.02 M/mm3 (4.6-6.20); White Blood Count 18.9 K/mm3 (4.5-10.0)
[2025-05-25] MEDS: LACTATED RINGERS 1,000 ML 999 ML IV CONT (17:52)
[2025-05-25] MEDS: ONDANSETRON INJ 4 MG/2 ML VIAL IV PUSH (17:52)
[2025-05-25] MEDS: MORPHINE SULFATE (*CRX) 4 MG/ML INJ IV PUSH (17:53)
[2025-05-25 17:59] LABS: INR 1.4; Partial Thromboplastin Time 26.6 Seconds (22.3-36.8); Prothrombin Time 17.0 Seconds (11.1-14.7)
[2025-05-25 18:05] LABS: Anion Gap 21 mmol/L (4-12); Blood Urea Nitrogen 35 mg/dL (9-20); Calcium 9.5 mg/dL (8.4-10.2); Carbon Dioxide 12 mmol/L (22-30); Chloride 103 mmol/L (98-107); Estimated CRCL calculation 66 ml/min; Estimated Glomerular Filt Rate > 60; Glucose 197 mg/dL (65-110); Potassium 4.5 mmol/L (3.4-5.0); Sodium 136 mmol/L (137-145)
[2025-05-25 18:18] LABS: Troponin I 0.265 ng/mL (0.000-0.034)
[2025-05-25 18:25] LABS: Alanine Aminotransferase 40 U/L (6-50); Albumin Level 3.6 g/dL (3.5-5.1); Alkaline Phosphatase 95 U/L (38-126); Aspartate Amino Transferase 53 U/L (17-59); Bilirubin,Total 1.0 mg/dL (0.2-1.3); Total Protein 6.7 g/dL (6.3-8.2)
[2025-05-25] MEDS: PANTOPRAZOLE SODIUM IV 40 MG VIAL 80 MG IV PUSH (19:41)
--- NOTE | 2025-05-25 19:41 | ED_ITS ---
HPI - Extremity Problem General Chief complaint: Extremity Problem,Nontraumatic <Shayy Walker PA-C - Last Filed: 05/27/25 10:48> Stated complaint: multiple complaints <ALEX Pino Last Filed: 05/27/25 10:48> Time Seen by Provider: 05/25/25 17:30 <Shayy Walker PA-C - Last Filed: 05/27/25 10:48> Source: patient <ALEX Pino Last Filed: 05/27/25 10:48> Mode of arrival: EMS <ALEX Pino Last Filed: 05/27/25 10:48> Limitations: no limitations <ALEX Pino Last Filed: 05/27/25 10:48> History of Present Illness HPI Narrative: This is a 59-year-old male that presents to the emergency department with left lower extremity pain and tingling. Worsening since last night. Reports several syncopal episodes last night as well. He did hit his head. Reports after his surgery on his right foot about 10 days ago he was prescribed ibuprofen. Reports he has been having epigastric pain since taking this. Reports over the last couple of days he has developed dark stools. Reports shortness of breath. <Shayy Walker PA-C - Last Filed: 05/27/25 10:48> Related Data Home medications: Home Medications ?Medication ?Instructions ?Recorded ?Confirmed ?Last Taken ?Type multivitamin 1 tablet PO DAILY 08/03/24 1 07/16/24 05/13/25 History <ALEX Pino Last Filed: 05/27/25 10:48> Allergies/Adverse reactions: Allergies Allergy/AdvReac Type Severity Reaction Status Date / Time No Known Allergies Allergy Mild Verified 05/25/25 17:24 <ALEX Pino Last Filed: 05/27/25 10:48> Review of Systems 2 Review of Systems: All systems reviewed & are unremarkable except as noted in HPI and below <ALEX Pino Last Filed: 05/27/25 10:48> [facility] Past Medical History Medical History: Medical History Hallux rigidus of right foot Cervical radiculopathy Myofascial neck pain Cervical spondylosis BMI 28.0-28.9,adult History of TIA (transient ischemic attack) Hypertension <Shayy Walker PA-C - Last Filed: 05/27/25 10:48> Surgical History Surgical History: Surgical History Hx of arthrodesis 05/16/2025- Dr. Conley Hallux arthrodesis History of hernia repair at <Shayy Walker PA-C - Last Filed: 05/27/25 10:48> Family History Family History: Family History Father Heart disease Hypertension Mother Sibling No problems noted. <Shayy Walker PA-C - Last Filed: 05/27/25 10:48> Social History Social History: Social History Smoking status: Never smoker Second hand tobacco smoke exposure: No Additional smoking assessment comments: smokes weed Alcohol intake: current Drinks per week: 70 Alcohol use details: 10-12 Beers daily Substance use: current Substance use type: marijuana Other substance usage details: Daily Do You Feel Safe in your Home?: Yes Lack of Transportation: No Lack of Food: Never True Current Housing: I Have Housing Concerned About Future Housing: No Difficulty Paying Gas/Electric Bills: No Difficulty Paying for Meds: No Currently Unemployed: No Education: Trade/Vocational Certificate Difficulty w/ Childcare or Family Care: No Living arrangements: alone Occupation/Education: occupation 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 HEAD: Normocephalic EYES: PERRLA and EOMI. ENT: Nares clear, no rhinorrhea or epistaxis. Mucous membranes moist. Oropharynx without tonsillar hypertrophy exudate or other lesions. Bilateral TMs pearly mcdaniel non-bulging NECK: Supple. No adenopathy or masses. CHEST: Clear to auscultation. No respiratory distress. No wheezes rales or rhonchi HEART: Regular rate and rhythm. No murmur heard. Normal peripheral pulses. ABDOMEN: Soft, nontender, nondistended, normal active bowel sounds. EXTREMITIES: Normal range of motion. No edema. Unable to doppler DP or PT pulse in the left foot. The left foot is cool. Normal capillary refill to the right foot which is bandaged from surgery SKIN: Warm, dry, no rash. NEURO: No focal deficits. Alert and oriented x3. CN II-XII grossly intact PSYCH: Normal mood and affect RECTAL: Hemoccult-positive <Shayy Walker PA-C - Last Filed: 05/27/25 10:48> Course COMPRESS ENGINEER/PA Physician Supervision This visit was performed by both a physician and an Advanced Practice Provider. I performed all aspects of the Medical Decision Making as documented. <Pete Nolan MD - Last Filed: 05/26/25 06:30> Consultations Consultation #1: Spoke with vascular surgery at [facility]. No intervention needed at this time. They will consult while patient is hospitalized <Shayy Walker PA-C - Last Filed: 05/27/25 10:48> Date: 05/25/25 <Shayy Walker PA-C - Last Filed: 05/27/25 10:48> Consultation #2: Spoke with hospitalist at [facility], accepts patient as transfer <Shayy Walker PA-C - Last Filed: 05/27/25 10:48> Date: 05/25/25 <Shayy Walker PA-C - Last Filed: 05/27/25 10:48> Vital Signs Vital signs: Vital Signs Pulse Rate 123 H 05/25/25 17:20 Respiratory Rate 29 H 05/25/25 17:20 Blood Pressure 192/88 H 05/25/25 17:20 Pulse Oximetry 96 05/25/25 17:20 Oxygen Delivery Room Air 05/25/25 17:20 Temperature 98.2 F 05/25/25 23:18 Pulse Rate 85 05/25/25 23:18 Respiratory Rate 20 05/25/25 23:18 Blood Pressure 110/56 L 05/25/25 23:18 Pulse Oximetry 98 05/25/25 23:18 Oxygen Delivery Room Air 05/25/25 17:20 <Shayy Walker PA-C - Last Filed: 05/27/25 10:48> Vital Signs Pulse Rate 123 H 05/25/25 17:20 Respiratory Rate 29 H 05/25/25 17:20 Blood Pressure 192/88 H 05/25/25 17:20 Pulse Oximetry 96 05/25/25 17:20 Oxygen Delivery Room Air 05/25/25 17:20 Temperature 98.2 F 05/25/25 23:18 Pulse Rate 85 05/25/25 23:18 Respiratory Rate 20 05/25/25 23:18 Blood Pressure 110/56 L 05/25/25 23:18 Pulse Oximetry 98 05/25/25 23:18 Oxygen Delivery Room Air 05/25/25 17:20 <Pete Nolan MD - Last Filed: 05/26/25 06:30> MDM - Extremity (Nontraumatic) MDM Narrative Medical decision making narrative: Patient presents to the emergency department for left lower extremity pain, numbness. Worsening since last night. Patient with known peripheral vascular disease. Reports he has had procedures on his right leg and is due to have vascular procedure on his left, but has not yet. Difficulty obtaining DP and PT pulses in the foot initially, his foot was cold. After hydration, transfusion he did have improvement in his symptoms. He does have normal range of motion in the leg. He was also endorsing chest discomfort, shortness of breath. Recent surgery on his right foot. Reports he was started on anti- inflammatory which was irritating his stomach. After that he had several days of dark stools. Stool is brown today, but Hemoccult positive. Initial hemoglobin 7.7, this was repeated and did drop below 7. Transfusion was started. Metabolic panel without concerning findings. EKG showing nonspecific minimal ST depressions. His troponin is elevated, but flat. Likely type 2 NSTEMI due to anemia. Patient reporting he had a syncopal episode and hit his head. CT brain and cervical spine without acute findings. CTA chest without evidence of PE. CT aorta runoff showing severe atherosclerotic disease. Cirrhotic disease liver with a concerning liver lesion. Renal lesion. Spoke with vascular surgery at [facility]. No intervention needed at this time. They will consult while patient is hospitalized. Spoke with hospitalist at [facility], accepts patient as transfer <Shayy Walker PA-C - Last Filed: 05/27/25 10:48> Differential Diagnosis Differential diagnosis: Likely other (Peripheral vascular disease, ischemic limb, PE, gastritis, esophagitis, GI bleeding, anemia) <Shayy Walker PA-C - Last Filed: 05/27/25 10:48> Lab Data Attestation: I reviewed the patient's lab results. <Shayy Walker PA-C - Last Filed: 05/27/25 10:48> Result diagrams: 05/25/25 21:51 05/25/25 17:36 <Shayy Walker PA-C - Last Filed: 05/27/25 10:48> Labs: Lab Results 05/25/25 05/25/25 05/25/25 Range/Units 17:35 17:36 20:35 WBC 18.9 H (4.5-10.0) K/mm3 RBC 3.02 L (4.6-6.20) M/mm3 Hgb 7.7 L D (14.0-18.0) g/dL Hct 25.4 L (42.0-52.0) % MCV 84.1 (80-100) fl MCH 25.5 L (26-34) pg MCHC 30.3 L (32-36) g/dl RDW 19.6 H (11.5-14.5) % Plt Count 243 D (150-375) k/mm3 MPV 9.7 (7.4-10.4) fl Immature Gran % (Auto) 2.2 H (0-0.5) % Neut % (Auto) 80.2 H (45.5-73.1) % Lymph % (Auto) 10.7 L (18.3-44.2) % [place] % (Auto) 6.6 (2.6-8.5) % Eos % (Auto) 0.1 (0-4.4) % Baso % (Auto) 0.2 (0.2-1.2) % Lymph # (Auto) 2.03 (0.9-3.2) K/mm3 [place] # (Auto) 1.3 H (0.1-0.6) K/mm3 Eos # (Auto) 0.0 (0-0.3) K/mm3 Baso # (Auto) 0.0 (0.0-0.1) K/mm3 Abs Immat Gran (auto) 0.42 H (0.00-0.031) K/mm3 Absolute Neuts (auto) 15.2 H (1.3-6.7) K/mm3 Absolute Nucleated RBC 0.000 (0.0-0.012) K/mm3 Nucleated RBC % 0.0 (0.0-0.2) % PT 17.0 H (11.1-14.7) Seconds INR 1.4 APTT 26.6 (22.3-36.8) Seconds Sodium 136 L (137-145) mmol/L Potassium 4.5 (3.4-5.0) mmol/L Chloride 103 (98-107) mmol/L Carbon Dioxide 12 L (22-30) mmol/L Anion Gap 21 H (4-12) mmol/L BUN 35 H D (9-20) mg/dL Creatinine 1.04 (0.7-1.3) mg/dL Estim Creat Clear Calc 66 ml/min Estimated GFR > 60 (59 - ) Glucose 197 H (65-110) mg/dL Lactic Acid 11.6 H* 2.3 H (0.7-2.0) mmol/L Calcium 9.5 (8.4-10.2) mg/dL Total Bilirubin 1.0 (0.2-1.3) mg/dL Direct Bilirubin 0.0 (0-0.3) mg/dL AST 53 (17-59) U/L ALT 40 (6-50) U/L Alkaline Phosphatase 95 (38-126) U/L Total Creatine Kinase 45 L (55-170) U/L Troponin I Cancelled 0.265 H* 0.269 H* Total Protein 6.7 (6.3-8.2) g/dL Albumin 3.6 (3.5-5.1) g/dL Urine Opiates Screen Positive A (Negative) Urine Methadone Screen Negative (Negative) Ur Barbiturates Screen Negative (Negative) Ur Phencyclidine Scrn Negative (Negative) Ur Amphetamine Screen Negative (Negative) U Benzodiazepines Scrn Negative (Negative) Urine Cocaine Screen Positive A (Negative) U Cannabinoids Screen Positive A (Negative) Ethyl Alcohol < 10 (<10) mg/dL Blood Type A Positive Antibody Screen Negative Crossmatch See Detail 05/25/25 Range/Units 21:51 WBC (4.5-10.0) K/mm3 RBC (4.6-6.20) M/mm3 Hgb 6.6 L* (14.0-18.0) g/dL Hct 21.0 L (42.0-52.0) % MCV (80-100) fl MCH (26-34) pg MCHC (32-36) g/dl RDW (11.5-14.5) % Plt Count (150-375) k/mm3 MPV (7.4-10.4) fl Immature Gran % (Auto) (0-0.5) % Neut % (Auto) (45.5-73.1) % Lymph % (Auto) (18.3-44.2) % [place] % (Auto) (2.6-8.5) % Eos % (Auto) (0-4.4) % Baso % (Auto) (0.2-1.2) % Lymph # (Auto) (0.9-3.2) K/mm3 [place] # (Auto) (0.1-0.6) K/mm3 Eos # (Auto) (0-0.3) K/mm3 Baso # (Auto) (0.0-0.1) K/mm3 Abs Immat Gran (auto) (0.00-0.031) K/mm3 Absolute Neuts (auto) (1.3-6.7) K/mm3 Absolute Nucleated RBC (0.0-0.012) K/mm3 Nucleated RBC % (0.0-0.2) % PT (11.1-14.7) Seconds INR APTT (22.3-36.8) Seconds Sodium (137-145) mmol/L Potassium (3.4-5.0) mmol/L Chloride (98-107) mmol/L Carbon Dioxide (22-30) mmol/L Anion Gap (4-12) mmol/L BUN (9-20) mg/dL Creatinine (0.7-1.3) mg/dL Estim Creat Clear Calc ml/min Estimated GFR (59 - ) Glucose (65-110) mg/dL Lactic Acid (0.7-2.0) mmol/L Calcium (8.4-10.2) mg/dL Total Bilirubin (0.2-1.3) mg/dL Direct Bilirubin (0-0.3) mg/dL AST (17-59) U/L ALT (6-50) U/L Alkaline Phosphatase (38-126) U/L Total Creatine Kinase (55-170) U/L Troponin I Total Protein (6.3-8.2) g/dL Albumin (3.5-5.1) g/dL Urine Opiates Screen (Negative) Urine Methadone Screen (Negative) Ur Barbiturates Screen (Negative) Ur Phencyclidine Scrn (Negative) Ur Amphetamine Screen (Negative) U Benzodiazepines Scrn (Negative) Urine Cocaine Screen (Negative) U Cannabinoids Screen (Negative) Ethyl Alcohol (<10) mg/dL Blood Type Antibody Screen Crossmatch <Shayy Walker PA-C - Last Filed: 05/27/25 10:48> Lab Results 05/25/25 05/25/25 05/25/25 Range/Units 17:35 17:36 20:35 WBC 18.9 H (4.5-10.0) K/mm3 RBC 3.02 L (4.6-6.20) M/mm3 Hgb 7.7 L D (14.0-18.0) g/dL Hct 25.4 L (42.0-52.0) % MCV 84.1 (80-100) fl MCH 25.5 L (26-34) pg MCHC 30.3 L (32-36) g/dl RDW 19.6 H (11.5-14.5) % Plt Count 243 D (150-375) k/mm3 MPV 9.7 (7.4-10.4) fl Immature Gran % (Auto) 2.2 H (0-0.5) % Neut % (Auto) 80.2 H (45.5-73.1) % Lymph % (Auto) 10.7 L (18.3-44.2) % [place] % (Auto) 6.6 (2.6-8.5) % Eos % (Auto) 0.1 (0-4.4) % Baso % (Auto) 0.2 (0.2-1.2) % Lymph # (Auto) 2.03 (0.9-3.2) K/mm3 [place] # (Auto) 1.3 H (0.1-0.6) K/mm3 Eos # (Auto) 0.0 (0-0.3) K/mm3 Baso # (Auto) 0.0 (0.0-0.1) K/mm3 Abs Immat Gran (auto) 0.42 H (0.00-0.031) K/mm3 Absolute Neuts (auto) 15.2 H (1.3-6.7) K/mm3 Absolute Nucleated RBC 0.000 (0.0-0.012) K/mm3 Nucleated RBC % 0.0 (0.0-0.2) % PT 17.0 H (11.1-14.7) Seconds INR 1.4 APTT 26.6 (22.3-36.8) Seconds Sodium 136 L (137-145) mmol/L Potassium 4.5 (3.4-5.0) mmol/L Chloride 103 (98-107) mmol/L Carbon Dioxide 12 L (22-30) mmol/L Anion Gap 21 H (4-12) mmol/L BUN 35 H D (9-20) mg/dL Creatinine 1.04 (0.7-1.3) mg/dL Estim Creat Clear Calc 66 ml/min Estimated GFR > 60 (59 - ) Glucose 197 H (65-110) mg/dL Lactic Acid 11.6 H* 2.3 H (0.7-2.0) mmol/L Calcium 9.5 (8.4-10.2) mg/dL Total Bilirubin 1.0 (0.2-1.3) mg/dL Direct Bilirubin 0.0 (0-0.3) mg/dL AST 53 (17-59) U/L ALT 40 (6-50) U/L Alkaline Phosphatase 95 (38-126) U/L Total Creatine Kinase 45 L (55-170) U/L Troponin I Cancelled 0.265 H* 0.269 H* Total Protein 6.7 (6.3-8.2) g/dL Albumin 3.6 (3.5-5.1) g/dL Urine Opiates Screen Positive A (Negative) Urine Methadone Screen Negative (Negative) Ur Barbiturates Screen Negative (Negative) Ur Phencyclidine Scrn Negative (Negative) Ur Amphetamine Screen Negative (Negative) U Benzodiazepines Scrn Negative (Negative) Urine Cocaine Screen Positive A (Negative) U Cannabinoids Screen Positive A (Negative) Ethyl Alcohol < 10 (<10) mg/dL Blood Type A Positive Antibody Screen Negative Crossmatch See Detail 05/25/25 Range/Units 21:51 WBC (4.5-10.0) K/mm3 RBC (4.6-6.20) M/mm3 Hgb 6.6 L* (14.0-18.0) g/dL Hct 21.0 L (42.0-52.0) % MCV (80-100) fl MCH (26-34) pg MCHC (32-36) g/dl RDW (11.5-14.5) % Plt Count (150-375) k/mm3 MPV (7.4-10.4) fl Immature Gran % (Auto) (0-0.5) % Neut % (Auto) (45.5-73.1) % Lymph % (Auto) (18.3-44.2) % [place] % (Auto) (2.6-8.5) % Eos % (Auto) (0-4.4) % Baso % (Auto) (0.2-1.2) % Lymph # (Auto) (0.9-3.2) K/mm3 [place] # (Auto) (0.1-0.6) K/mm3 Eos # (Auto) (0-0.3) K/mm3 Baso # (Auto) (0.0-0.1) K/mm3 Abs Immat Gran (auto) (0.00-0.031) K/mm3 Absolute Neuts (auto) (1.3-6.7) K/mm3 Absolute Nucleated RBC (0.0-0.012) K/mm3 Nucleated RBC % (0.0-0.2) % PT (11.1-14.7) Seconds INR APTT (22.3-36.8) Seconds Sodium (137-145) mmol/L Potassium (3.4-5.0) mmol/L Chloride (98-107) mmol/L Carbon Dioxide (22-30) mmol/L Anion Gap (4-12) mmol/L BUN (9-20) mg/dL Creatinine (0.7-1.3) mg/dL Estim Creat Clear Calc ml/min Estimated GFR (59 - ) Glucose (65-110) mg/dL Lactic Acid (0.7-2.0) mmol/L Calcium (8.4-10.2) mg/dL Total Bilirubin (0.2-1.3) mg/dL Direct Bilirubin (0-0.3) mg/dL AST (17-59) U/L ALT (6-50) U/L Alkaline Phosphatase (38-126) U/L Total Creatine Kinase (55-170) U/L Troponin I Total Protein (6.3-8.2) g/dL Albumin (3.5-5.1) g/dL Urine Opiates Screen (Negative) Urine Methadone Screen (Negative) Ur Barbiturates Screen (Negative) Ur Phencyclidine Scrn (Negative) Ur Amphetamine Screen (Negative) U Benzodiazepines Scrn (Negative) Urine Cocaine Screen (Negative) U Cannabinoids Screen (Negative) Ethyl Alcohol (<10) mg/dL Blood Type Antibody Screen Crossmatch <Pete Nolan MD - Last Filed: 05/26/25 06:30> Imaging Data Radiologist's impression: ITS Impressions Head CT 05/25/25 18:43 Impression: 1.No acute intracranial abnormality. Cervical Spine CT 05/25/25 18:49 Impression: No acute abnormality. Chest CTA 05/25/25 18:55 IMPRESSION: 1. Negative for pulmonary embolism. No acute process is identified. Aorta w/Runoff CTA 05/25/25 19:07 IMPRESSION: 1. Severe atherosclerotic disease with critical stenoses detailed above and occlusion of the distal right superficial femoral artery. Conventional angiogram is recommended. 2. Cirrhotic disease of the liver with liver lesion concerning for neoplasm. 3. Right renal lesion concerning for neoplasm. 4. Contrast-enhanced MRI is recommended to assess <Shayy Walker PA-C - Last Filed: 05/27/25 10:48> Critical Care Time Critical Care Time Critical Care Time: Yes <Shayy Walker PA-C - Last Filed: 05/27/25 10:48> Total Critical Care Time: 35 <ALEX Pino Last Filed: 05/27/25 10:48> Discharge Plan Discharge Clinical Impression: Acute GI bleeding, Peripheral vascular disease, Kidney lesion, Lesion of liver Anemia Qualifiers: Anemia type: unspecified type Qualified Code(s): D64.9 - Anemia, unspecified <ALEX Pino Last Filed: 05/27/25 10:48> Patient Disposition: [facility] <ALEX Pino Last Filed: 05/27/25 10:48> Condition: Serious <ALEX Pino Last Filed: 05/27/25 10:48> Patient Language: Tamazight <ALEX Pino Last Filed: 05/27/25 10:48> Prescriptions: No Action multivitamin Tablet 1 tablet PO DAILY clopidogrel 75 mg tablet 75 mg PO QAM Qty: 90 3RF atenolol 50 mg tablet 50 mg PO DAILY Qty: 90 3RF lisinopril 10 mg tablet 10 mg PO DAILY Qty: 90 3RF pravastatin 20 mg tablet 20 mg PO DAILY Qty: 90 3RF polyethylene glycol 3350 17 gram powder in packet 17 g PO DAILY PRN (Reason: constipation) Qty: 14 1RF ibuprofen 800 mg tablet 800 mg PO TID PRN (Reason: pain) Qty: 30 1RF ondansetron 8 mg tablet,disintegrating 8 mg PO Q8H PRN (Reason: nausea and vomiting) Qty: 10 1RF sennosides-docusate sodium [Senna with Docusate Sodium] 8.6-50 mg tablet 1 tab-cap PO BID PRN (Reason: constipation) Qty: 20 1RF hydrocodone-acetaminophen 10-325 mg tablet 0.5 tablet PO QID PRN (Reason: pain) Qty: 30 0RF <Shayy Walker PA-C - Last Filed: 05/27/25 10:48> Follow-up/Referrals: Lawrence Blue MD [Primary Care Provider, Family Practice] <ALEX Pino Last Filed: 05/27/25 10:48>
[2025-05-25 20:01] LABS: Creatine Kinase 45 U/L (55-170)
[2025-05-25] MEDS: SODIUM CHLORIDE 0.9% IV 1,000 ML 999 ML IV CONT (20:21)
[2025-05-25 21:09] LABS: Troponin I 0.269 ng/mL (0.000-0.034)
[2025-05-25 21:10] LABS: Cannabinoid Screen Urine Positive (Negative)
[2025-05-25 21:58] LABS: Hematocrit 21.0 % (42.0-52.0)
[2025-05-25 22:00] LABS: Hemoglobin 6.6 g/dL (14.0-18.0)
[2025-05-25] MEDS: SODIUM CHLORIDE 0.9% IV 250 ML 30 ML IV CONT (22:33)
== END 2025-05-25 23:27 | disposition short-term general hospital (02) ==
PROVIDERS: Emergency Medicine; Emergency Provider Physician Assistant; PCP Family Medicine Adolescent Medicine
DX: K92.2 Gastrointestinal hemorrhage, unspecified (principal); D64.9 Anemia, unspecified; N28.9 Disorder of kidney and ureter, unspecified; K76.9 Liver disease, unspecified; I70.223 Atherosclerosis of native arteries of extremities with rest pain, bilateral legs; I10 Essential (primary) hypertension; Z86.73 Personal history of transient ischemic attack (TIA), and cerebral infarction without residual deficits; K74.60 Unspecified cirrhosis of liver; Z79.02 Long term (current) use of antithrombotics/antiplatelets; Z79.899 Other long term (current) drug therapy; R00.0 Tachycardia, unspecified
CPT/HCPCS: 36415; 36430; 70450; 71275; 72125; 75635; 80048; 80076; 80307; 82077; 82550; 83605; 84484; 85014; 85018; 85025; 85610; 85730; 86850; 86900; 86901; 86923; 93005; 96361; 96374; 96375; 99285; J2270; J2405; J2470; J7030; J7050; J7120; P9016; Q9967